=== PATIENT | male | born 1945 | race Caucasian/White ===

== ENCOUNTER → 2018-12-22 12:23 | Outpatient (CLI) | payer OTHER, SELFPAY ==
--- NOTE | 2018-12-22 12:27 | DI.MRI.S_ITS ---
PROCEDURE: MR LUMBAR SPINE WO CON INDICATIONS: Low back pain TECHNIQUE: Noncontrast sagittal T1 spin echo and T2 fast echo, sagittal STIR, axial T1 and T2 fast spin echo through the lumbar spine. In cases with scoliosis, additional coronal T2 fast spin echo may be performed. [facility] [place] [place], 03/03/2016, 14:38. FINDINGS: Image quality: Excellent. Alignment and Curvature: There is minimal anterolisthesis at L4-L5. Bone Marrow: Degenerative endplate signal changes are present in L4, L5 and S1. No acute vertebral body compression fractures. Spinal Cord: Conus medullaris terminates at the L1-L2 level. Visualized cord demonstrates normal signal and size. Paraspinous Soft Tissues: No paravertebral masses. L1-L2: Normal appearance. L2-L3: Preserved disc height. Mild disc desiccation. There is posterior disc bulge. The central canal is patent. No foraminal stenosis. No definitive nerve root impingement. L3-L4: Preserved disc height. Mild disc desiccation. There is mild posterior disc bulge. The central canal is patent. Mild left foraminal stenosis. No right foraminal stenosis. No definitive nerve root impingement. L4-L5: Moderate loss of disc height and disc desiccation. There is diffuse posterior disc bulge and right posterior paramedian disc extrusion. Moderate bilateral facet arthropathy. Mild hypertrophy of ligamentum flavum. The central canal is moderately narrowed. Mild right foraminal stenosis. Patent left neural foramen. There is possible right L5 nerve root impingement. L5-S1: Moderate to severe loss of disc height and disc desiccation. There is diffuse posterior disc bulge and disc osteophyte complex. Mild bilateral facet arthropathy. The central canal is patent. Mild foraminal stenosis. No definitive nerve root impingement. IMPRESSION: 1. Multilevel degenerative disc disease and facet arthropathy as described, most pronounced at L4-L5. 2. Moderate central canal stenosis at L4-L5. 3. Mild foraminal stenosis at L3-L4 on the left, L4-L5 on the right, and L5-S1 bilaterally. Dictated by: Tony Marie M.D. on 12/22/2018 at 13:35 Approved by: Tony Marie M.D. on 12/22/2018 at 15:21
--- NOTE | 2018-12-22 12:27 | DI.RAD.S_ITS ---
PROCEDURE: XR LUMBAR SPINE MIN 4V INDICATIONS: Low back TECHNIQUE: 5 views of the lumbar spine were acquired. COMPARISON: [facility] [place], CR, SPINE LUMB MIN 4VW, 03/03/2016, 14:38. FINDINGS: Bones: 5 nonrib-bearing vertebrae are present. There is normal bony alignment. No acute vertebral body compression fractures. Multilevel lumbar spondylosis with associated facet arthropathy most notable in the mid and lower lumbar spine, and most pronounced at L5-S1. No suspicious bony lesions. Minimal degenerative changes of the bilateral femoroacetabular joints. Soft tissues: Overlying bowel gas pattern is normal. No suspicious soft tissue calcifications. There are atherosclerotic calcifications of the abdominal aorta. Surgical clips in the left upper abdomen and pelvis are again noted Oblique images: No pars defects. IMPRESSION: Lumbar spine without acute osseous abnormalities. Multilevel lumbar spondylosis most severe at L5-S1. Dictated by: Grant Cruz M.D. on 12/22/2018 at 16:45 Approved by: Grant Cruz M.D. on 12/22/2018 at 16:49
== END ==
PROVIDERS: PCP Family Medicine; Visit Provider Physical Medicine & Rehabilitation
DX: M54.5 Low back pain (principal); M51.16 Intervertebral disc disorders with radiculopathy, lumbar region; M51.17 Intervertebral disc disorders with radiculopathy, lumbosacral region; M48.061 Spinal stenosis, lumbar region without neurogenic claudication; M48.07 Spinal stenosis, lumbosacral region; M47.26 Other spondylosis with radiculopathy, lumbar region; M47.27 Other spondylosis with radiculopathy, lumbosacral region
CPT/HCPCS: 72110; 72148

== ENCOUNTER 2019-01-02 10:31 | Outpatient (CLI) | payer OTHER, SELFPAY ==
[2019-01-02] VITALS (10 sets, daily range): BP systolic 119–152; BP diastolic 52–86; PULSE 63–83; RESP 16–20; TEMP 36.5; O2SAT 96–98
--- NOTE | 2019-01-02 | DI.RAD.S_ITS ---
PROCEDURE: PAIN L/SI FACET INJ/BLK 1STL INDICATIONS: SPONDYLOSIS FINDINGS: Fluoroscopic spot filming was performed to verify placement of spinal needles at the right L4-L5 level(s), as labeled on the films. Appropriate location(s) of the needle tip(s) was confirmed by injection of iodinated contrast. IMPRESSION: Fluoroscopy for pain management. Dictated by: Tony Marie M.D. on 01/02/2019 at 17:35 Approved by: Tony Marie M.D. on 01/02/2019 at 17:35
--- NOTE | 2019-01-02 10:34 | DI.RAD.S_ITS ---
PROCEDURE: PAIN L/S TRANSFORAMINAL INJECT INDICATIONS: SPONDYLOSIS FINDINGS: Fluoroscopic spot filming was performed to verify placement of spinal needles at the L4-L5 level(s), as labeled on the films. Appropriate location(s) of the needle tip(s) was confirmed by injection of iodinated contrast. IMPRESSION: Fluoroscopy for pain management. Dictated by: Tony Marie M.D. on 01/02/2019 at 17:35 Approved by: Tony Marie M.D. on 01/02/2019 at 17:35
[2019-01-02] MEDS: fentaNYL 100 MCG/2 ML INJ 50 MCG IV (12:08)
[2019-01-02] MEDS: MIDAZOLAM 5 MG/5 ML VIAL IV (12:08)
[2019-01-02] MEDS: BETAMETHASONE 30 MG/5 ML MDV 12 MG INJ (12:16)
[2019-01-02] MEDS: IOPAMIDOL 15 ML VIAL 3 ML INJ (12:16)
[2019-01-02] MEDS: BUPIVACAINE 0.5% (PF) VIAL 2 ML INJ (12:24)
--- NOTE | 2019-01-02 12:27 | PC.NURSE ---
Pt tolerated procedure well. Able to get off the table with standby assist. Transferred pt via wheelchair to pre procedure room for continued monitoring with Justyna COLLINS.
--- NOTE | 2019-01-02 12:36 | PC.NURSE ---
Pt returns to treatment area alert and awake. Is able to transfer himself to chair without assist.
--- NOTE | 2019-01-02 12:38 | P.PCN_ITS ---
Procedures Date/Time Date of procedure: 01/02/19 Time of procedure: 12:35 General Procedure description: PREOP DIAGNOSIS 1. FACET ARTHROPATHY, 2. AXIAL LBP, 3. MULTILEVEL DDD, POST OP DIAGNOSIS 1. FACET ARTHROPATHY, 2. AXIAL LBP, 3. MULTILEVEL DDD, PROCEDURES 1. FLUORSCOPICALLY GUIDED CONTRAST CONTROLLED FACET JOINT INJECTION and CYST RUPTURE RIGHT L4/5 SURGEON: Don Arteaga, DO INDICATIONS Calderon is referred by Dr. Mcgrath for treatment of Axial LBP FINDINGS Multilevel Facet Arthropathy with Clinically significant axial LBP DESCRIPTION OF PROCEDURE Fluoroscopically guided, contrast-controlled right L4/5 facet joint injections. Following review of allergy and review of potential side effects and complications, including, but not necessarily limited to, infection, allergic reaction, local tissue breakdown, stroke, temporary or permanent nerve injury, paralysis, and possible , the patient indicated that the patient understood and agreed to proceed. An informed consent document was signed by the patient, witnessed by a nurse, and placed in the patient's chart. Additionally, other treatment options including medications, modalities, and physical therapy were reviewed with the patient. After review of previous anaesthesic history and IV conscious sedation the patient was deemed safe to proceed with todays procedure with IV conscious sedation as ASA class II designation. Safety time-out was performed to confirm patient ID, procedure to be performed and site of procedure. IV sedation was accomplished with a combination of 4mg of Versed and 50mcg of Fentanyl administered by the RN after DO order, titrated to patient comfort during the course of the procedure while the patient remained responsive to all verbal commands. In the prone position, following sterile prep and drape of the lumbar region, the posterior aspect of the right L4/5 facet joints were identified fluoroscopically. The skin was anesthetized via a 25-gauge 1.5-inch needle with 1% lidocaine solution into the corresponding facet joints. At this point, a 22- gauge 3.5-inch spinal needle was atraumatically introduced and advanced under fluoroscopic guidance into the corresponding facet joint. Following negative aspiration and drainage of the facet cyst and rupture, injections of approximately 0.2-cc of Isovue 200 confirmed interarticular placement without vascular uptake. Radiological data, including multiple fluoroscopic views of the lumbosacral spine, reveal a spinal needle at the right L4/5 facet joint. Subsequent views show flow of contrast material both superiorly and inferiorly within the joint space without vascular or intrathecal uptake. At this point, a total of 0.5 cc including a mixture of 0.25 cc Marcaine and 0.25 cc betamethasone was injected without complication into each of the corresp onding facet joints. The patient tolerated the procedure well without signs or symptoms of complications prior to transfer to the recovery area for further monitoring. The patient was then transferred to the recovery area where they were observed for an appropriate period of time after the injection. The patient reported a VAS score of 7 prior to the procedure and a post-procedure VAS of 0. Total Fluoroscopy Time: 12.7 seconds Total Conscious Sedation Time: 24min POST OP INSTRUCTIONS The patient was provided a Pain Log to continue to record their response to the target-specific procedure prior to follow-up visit with their referring physician. Additionally, specific post-injection care instructions and a contact number to our office were provided if concerns arise regarding possible complications associated with the procedure are suspected Complications: none
--- NOTE | 2019-01-02 12:39 | P.PCN_ITS ---
Procedures Date/Time Date of procedure: 01/02/19 Time of procedure: 12:38 General Procedure description: PREOP DIAGNOSIS 1. FORMAINAL STENOSIS WITH LE SYMPTOMS POST OP DIAGNOSIS 1. FORMAINAL STENOSIS WITH LE SYMPTOMS PROCEDURES 1. FLUOROSCOPICALLY GUIDED CONTRAST CONTROLLED TRANSFORAMINAL EPIDURAL STEROID INJECTION - RIGHT L4/5 TFESI PHYSICIAN: Don Arteaga DO INDICATIONS: Calderon is referred by for treatment of Foraminal Stenosis with Right LE Symptoms FINDINGS Foraminal Nerve Root Compression secondary to disc disease and facet hypertrophy DESCRIPTION OF PROCEDURE: Following review of allergy and review of potential side effects and complications, including, but not necessarily limited to, infection, allergic reaction, local tissue breakdown, stroke, temporary or permanent nerve injury, paralysis, and possible , the patient indicated that the patient understood and agreed to proceed. An informed consent document was signed by the patient, witnessed by a nurse, and placed in the patient's chart. Additionally, other treatment options including medications, modalities, and physical therapy were reviewed with the patient. After review of previous anaesthesic history and IV conscious sedation the patient was deemed safe to proceed with todays procedure with IV conscious sedation as ASA class II designation. Safety time-out was performed to confirm patient ID, procedure to be performed and site of procedure. IV sedation was accomplished with a combination of 3mg of Versed was administered by the RN after DO order, titrated to patient comfort during the course of the procedure while the patient remained responsive to all verbal commands In the prone position following sterile prep and drape of the lumbar region, the Right L4/5 posterior neuroforamen was identified fluoroscopically. The skin was anesthetized via a 25-gauge 1.5-inch needle with 1% lidocaine solution. At this point, a 25-gauge 3.5-inch spinal needle was atraumatically introduced and advanced under fluoroscopic guidance through the posterior Right L4/5 neuroforamen to approximately the anterior aspect of the canal. Depth was confirmed on lateral view. Following negative aspiration, injection of approximately 1.5 cc of Isovue 200 under live fluoroscopy in the AP view confirmed excellent flow along the nerve root, into the epidural space without vascular or intrathecal uptake observed Radiological data, including multiple fluoroscopic views of the lumbosacral spine, reveal a spinal needle at the right L4/5 posterior neuroforamen. Subsequent views show flow of contrast material flowing superiorly and inferiorly along the nerve root confirming epidural flow. Subsequently, a test dose of 1.5 cc of 1% lidocaine solution was administered and patient was observed for two minutes for signs or symptoms of complications, including abdominal pain, shortness of breath, bilateral upper or lower extremity weakness, nausea and vomiting, prior to steroid injection. At this point, a total of 2cc or 20mg of dexamethasone was injected without incident. The procedure tolerated the procedure well without signs or symptoms of complications prior to transfer to the recovery area continued monitoring without incident.The patient was then transferred to the recovery area where they were observed for an appropriate time after the injection. The patient reported a VAS score of 7 prior to the procedure and a post- procedure VAS of 0. Total Fluoroscopy Time: 20.9 seconds Total Conscious Sedation Time: 24min POST OP INSTRUCTIONS The patient was provided a Pain Log to continue to record their response to the target-specific procedure prior to follow-up visit with their referring physician. Additionally, specific post-injection care instructions and a contact number to our office were provided if concerns arise regarding possible complications associated with the procedure are suspected. Don Arteaga DO Complications: none
== END 2019-01-02 12:55 ==
PROVIDERS: PCP Family Medicine; Visit Provider Physical Medicine & Rehabilitation
DX: M47.816 Spondylosis without myelopathy or radiculopathy, lumbar region (principal); M47.817 Spondylosis without myelopathy or radiculopathy, lumbosacral region; M48.061 Spinal stenosis, lumbar region without neurogenic claudication; M54.5 Low back pain; M51.36 Other intervertebral disc degeneration, lumbar region; M71.38 Other bursal cyst, other site
CPT/HCPCS: 64483; 64493; 99152; J0702; J2250; J3010

== ENCOUNTER → 2019-05-11 11:36 | Outpatient (CLI) | payer OTHER, SELFPAY ==
--- NOTE | 2019-05-11 11:38 | DI.RAD.S_ITS ---
PROCEDURE: XR HAND LT MIN 3V INDICATIONS: Left hand pain TECHNIQUE: 3 views of the hand(s) acquired. COMPARISON: None. FINDINGS: Bones: No fractures or dislocations. Carpal bones are normally aligned. No suspicious bony lesions. Diffuse interphalangeal degenerative spurring sclerosis. Ovoid ossified at the third metacarpal head. First CMC and triscaphe joint degeneration. Possible cysts or erosions present in the lunate and distal ulna Soft tissues: No suspicious soft tissue calcifications. IMPRESSION: Diffuse left hand joint degeneration, most pronounced at the first CMC joint. Hooklike osteophyte seen at the third metacarpal raises possibility of deposition arthropathy. Dictated by: Kurt Ybarra M.D. on 05/11/2019 at 15:32 Approved by: Kurt Ybarra M.D. on 05/11/2019 at 15:40
== END ==
PROVIDERS: Family Provider Family Medicine; PCP Family Medicine; Visit Provider Physical Medicine & Rehabilitation
DX: M18.11 Unilateral primary osteoarthritis of first carpometacarpal joint, right hand (principal); M18.12 Unilateral primary osteoarthritis of first carpometacarpal joint, left hand; M75.42 Impingement syndrome of left shoulder; M79.642 Pain in left hand
CPT/HCPCS: 73130

== ENCOUNTER → 2021-08-19 12:27 | Outpatient (CLI) | payer OTHER, SELFPAY ==
--- NOTE | 2021-08-19 12:29 | DI.MRI.S_ITS ---
PROCEDURE: MR LUMBAR SPINE WO CON INDICATIONS: Recurrent chronic progressive axial low back pain L>R TECHNIQUE: Noncontrast sagittal T1 spin echo and T2 fast echo, sagittal STIR, axial T1 and T2 fast spin echo through the lumbar spine. In cases with scoliosis, additional coronal T2 fast spin echo may be performed. COMPARISON: [facility], MR, MR LUMBAR SPINE WO CON, 12/22/2018, 12:35. FINDINGS: Image quality: Excellent. Alignment and Curvature: There is normal bony alignment. Bone Marrow: Marrow is of normal overall signal. No acute vertebral body compression fractures. Spinal Cord: Conus medullaris terminates at the L1 level. Visualized cord demonstrates normal signal and size. Paraspinous Soft Tissues: No paravertebral masses. T12-L1: No significant disc bulge. The foramina and central canal are patent. L1-L2: No significant disc bulge with mild disc desiccation. The foramina and central canal are patent. L2-L3: No significant disc bulge with mild disc desiccation. The foramina and central canal are patent. L3-L4: Diffuse disc bulge with mild disc desiccation and right facet hypertrophy causes severe right and moderate left foraminal stenosis. The central canal is patent. L4-L5: Diffuse disc bulge with mild disc desiccation and facet arthrosis cause mild bilateral foraminal stenosis. Mild right paramedian disc protrusion is unchanged. The central canal has mild stenosis. L5-S1: Disc space narrowing and diffuse disc bulge with Modic 3 endplate degenerative changes cause mild right and moderate left foraminal stenosis. Mild left foraminal disc protrusion. IMPRESSION: 1. Multilevel degenerative disc disease and facet arthropathy causing foraminal and central canal stenosis as above. 2. Mild central canal stenosis at L4-5. 3. Overall there is no significant change compared to 12/22/2018. Dictated by: Ascencion Hassan M.D. on 08/19/2021 at 17:44 Approved by: Ascencion Hassan M.D. on 08/19/2021 at 17:54
== END ==
PROVIDERS: Family Provider Family Medicine; PCP Internal Medicine; Referring Provider Physical Medicine & Rehabilitation; Visit Provider Physical Medicine & Rehabilitation
DX: M51.16 Intervertebral disc disorders with radiculopathy, lumbar region (principal); M51.17 Intervertebral disc disorders with radiculopathy, lumbosacral region; M47.26 Other spondylosis with radiculopathy, lumbar region; M47.27 Other spondylosis with radiculopathy, lumbosacral region; M48.061 Spinal stenosis, lumbar region without neurogenic claudication; M48.07 Spinal stenosis, lumbosacral region; M71.38 Other bursal cyst, other site
CPT/HCPCS: 72148

== ENCOUNTER → 2021-09-01 11:25 | Outpatient (CLI) | payer OTHER, SELFPAY ==
[2021-09-01 12:08] LABS: COVID19 -Nasal RAPID Negative (Negative)
== END ==
PROVIDERS: Family Provider Family Medicine; PCP Internal Medicine; Visit Provider Physical Medicine & Rehabilitation
DX: Z20.822 Contact with and (suspected) exposure to COVID-19 (principal)
CPT/HCPCS: 87635; C9803

== ENCOUNTER 2021-09-03 14:56 | Outpatient (CLI) | payer OTHER, SELFPAY ==
[2021-09-03] VITALS (9 sets, daily range): BP systolic 171–193; BP diastolic 74–84; PULSE 60–68; RESP 14–20; TEMP 37.1; O2SAT 95–100
--- NOTE | 2021-09-03 14:57 | DI.RAD.S_ITS ---
PROCEDURE: PAIN L/S FACET INJ/BLK 1ST KELLE COMPARISON: None. INDICATIONS: Spondylosis FINDINGS: Intraoperative fluoroscopic images shows injection needles projecting at right side of L4-5 and L5-S1 levels. IMPRESSION: Fluoro guidance was provided intraoperatively for bilateral L4-5 and L5-S1 facet joint injections performed by the ordering physician. Dictated by: Orlando Marquez M.D. on 09/03/2021 at 16:34 Approved by: Orlando Marquez M.D. on 09/03/2021 at 16:39
[2021-09-03] MEDS: fentaNYL 100 MCG/2 ML INJ (15:56)
[2021-09-03] MEDS: MIDAZOLAM 2 MG/2 ML VIAL 5 MG IV (15:57)
[2021-09-03] MEDS: BETAMETHASONE 30 MG/5 ML MDV 12 MG INJ (15:58)
[2021-09-03] MEDS: LIDOCAINE 1% 20 ML (15:58)
[2021-09-03] MEDS: BUPIVACAINE 0.5% (PF) VIAL 5 ML INJ (15:58)
[2021-09-03] MEDS: IOPAMIDOL 15 ML VIAL 3 ML INJ (15:59)
--- NOTE | 2021-09-03 16:16 | P.PCN_ITS ---
Date/Time/Diagnoses Date of procedure: 09/03/21 Time of procedure: 16:16 Pre-procedure diagnosis: 1. FACET ARTHROPATHY 2. AXIAL LBP 3. MULTILEVEL DDD Post-procedure diagnosis: same Procedure Notes Procedure: 1. FLUOROSCOPICALLY GUIDED CONTRAST CONTROLLED FACET JOINT INJECTIONS BILATERAL L4/5, L5/S1 Indications: Calderon is referred by Dr. Murguia for treatment of Axial LBP Physician: Don Arteaga Total Fluoroscopy time (seconds): 18 Total sedation minutes: 18 Complications: none Procedure in detail & Post-procedure care: FINDINGS Multilevel Facet Arthropathy with Clinically significant axial LBP DESCRIPTION OF PROCEDURE Fluoroscopically guided, contrast-controlled bilateral L4/5, L5/S1 facet joint injections. Following review of allergy and review of potential side effects and complications, including, but not necessarily limited to, infection, allergic reaction, local tissue breakdown, stroke, temporary or permanent nerve injury, paralysis, and possible , the patient indicated that the patient understood and agreed to proceed. An informed consent document was signed by the patient, witnessed by a nurse, and placed in the patient's chart. Additionally, other treatment options including medications, modalities, and physical therapy were reviewed with the patient. After review of previous anaesthesic history and IV conscious sedation the patient was deemed safe to proceed with today?s procedure with IV conscious sedation as ASA class II designation. Safety time-out was performed to confirm patient ID, procedure to be performed and site of procedure. IV sedation was accomplished with a combination of 2mg of Versed and 50mcg of Fentanyl was administered by the RN after DO order, titrated to patient comfort during the course of the procedure while the patient remained responsive to all verbal commands In the prone position, following sterile prep and drape of the lumbar region, the posterior aspect of the L4/5, L5/S1 facet joints were identified fluoroscopically. The skin was anesthetized via a 25-gauge 1.5inch needle with 1% lidocaine solution into the corresponding facet joints. At this point, a 22- gauge 3.5-inch spinal needle was atraumatically introduced and advanced under fluoroscopic guidance into the corresponding facet joints. Following negative aspiration, injections of approximately 0.2cc of Isovue 200 confirmed intera rticular placement without vascular uptake. The identical procedure was then performed at the L4/5, L5/S1 facet joints on the left. Radiological data, including multiple fluoroscopic views of the lumbosacral spine, reveal a spinal needle at the L4/5, L5/S1 facet joints bilaterally. Subsequent views show flow of contrast material both superiorly and inferiorly within the joint space without vascular or intrathecal uptake. At this point, a total of 0.5cc including a mixture of 0.25cc Marcaine and 0.25cc betamethasone was injected without complication into each of the corresponding facet joints. The patient tolerated the procedure well without signs or symptoms of complications prior to transfer to the recovery area continued monitoring without incident. The patient was then transferred to the recovery area where they were observed for an appropriate period of time after the injection. The patient reported a VAS score of 7 prior to the procedure and a post- procedure VAS of 0. POST OP INSTRUCTIONS The patient was provided a Pain Log to continue to record their response to the target-specific procedure prior to follow-up visit with their referring physician. Additionally, specific post-injection care instructions and a contact number to our office were provided if concerns arise regarding possible complications associated with the procedure are suspected.
== END 2021-09-03 16:30 | disposition home or self-care (01) ==
LOC: RAD 14:57
PROVIDERS: Family Provider Family Medicine; PCP Internal Medicine; Referring Provider Physical Medicine & Rehabilitation; Visit Provider Physical Medicine & Rehabilitation
DX: M47.816 Spondylosis without myelopathy or radiculopathy, lumbar region (principal); M47.817 Spondylosis without myelopathy or radiculopathy, lumbosacral region; M51.36 Other intervertebral disc degeneration, lumbar region; M51.37 Other intervertebral disc degeneration, lumbosacral region
CPT/HCPCS: 64493; 64494; 99152; J0702; J2250; J3010

== ENCOUNTER 2021-12-08 10:07 | Outpatient (CLI) | payer OTHER, SELFPAY ==
[2021-12-08] VITALS (9 sets, daily range): BP systolic 163–203; BP diastolic 70–84; PULSE 53–65; RESP 14–20; TEMP 36.3; O2SAT 95–100
--- NOTE | 2021-12-08 10:08 | DI.RAD.S_ITS ---
PROCEDURE: PAIN L/S FACET INJ/BLK 1ST KELLE COMPARISON: [facility], , PAIN L/S FACET INJ/BLK 1ST KELLE, 09/03/2021, 15:56. INDICATIONS: SPONDYLOSIS FINDINGS: Fluoroscopic spot filming was performed to verify placement of spinal needles on both sides at the L3, L4, and L5 levels, as labeled on the films. Appropriate location of the needle tips was confirmed by injection of iodinated contrast. IMPRESSION: Intraprocedural examination demonstrating appropriate positions of the needles. Dictated by: Koffi Romero M.D. on 12/08/2021 at 12:29 Approved by: Koffi Romero M.D. on 12/08/2021 at 12:29
[2021-12-08 11:57] LABS: COVID19 -Nasal RAPID Negative (Negative)
[2021-12-08] MEDS: MIDAZOLAM 2 MG/2 ML VIAL (12:50)
[2021-12-08] MEDS: BUPIVACAINE 0.5% (PF) VIAL 5 ML INJ (12:55)
[2021-12-08] MEDS: LIDOCAINE 1% 20 ML (12:56)
[2021-12-08] MEDS: IOPAMIDOL 15 ML VIAL 3 ML INJ (12:56)
--- NOTE | 2021-12-08 13:05 | P.PCN_ITS ---
Date/Time/Diagnoses Date of procedure: 12/08/21 Time of procedure: 13:05 Pre-procedure diagnosis: FACET ARTHROPATHY Post-procedure diagnosis: same Procedure Notes Procedure: 1. BILATERAL L3, L4 AND L5 DIAGNOSTIC MB BLOCKS Indications: Calderon is referred by Dr. Murguia for treatment of Bilateral Axial LBP. Physician: Don Arteaga Total Fluoroscopy time (seconds): 13 Total sedation minutes: 12 Complications: none Procedure in detail & Post-procedure care: DESCRIPTION OF PROCEDURE Fluoroscopically guided, contrast-controlled bilateral L3, L4 AND L5 medial branch blocks with 0.5cc of 0.5% Marcaine. Following review of allergy and review of potential side effects and complications, including, but not necessarily limited to, infection, allergic reaction, local tissue breakdown, nerve injury, paralysis, stroke and possible , the patient indicated that the patient understood and agreed to proceed. An informed consent document was signed by the patient, witnessed by a nurse, and placed in the patient's chart. After review of previous anaesthesic history and IV conscious sedation the patient was deemed safe to proceed with today's procedure with IV conscious sedation as ASA class II designation. Safety time-out was performed to confirm patient ID, procedure to be performed and site of procedure. IV sedation was accomplished with a combination of 2mg of Versed was administered by the RN a fter DO order, titrated to patient comfort during the course of the procedure while the patient remained responsive to all verbal commands In the prone position, following sterile prep and drape of the lumbar region, the right L3, L4 and L5 anatomical location of the medial branch of the dorsal ramus was identified fluoroscopically. Subsequently an anesthetic skin wheal using 1% lidocaine solution was initiated at each of the anatomical spots. Subsequently then a 22-gauge 3.5-inch spinal needle was atraumatically introduced and advanced under fluoroscopic guidance at each of the corresponding sites at the right L3, L4 and L5 MB. After negative aspiration, 0.2cc of Isovue 200 was injected, confirming placement without vascular or intrathecal uptake. Subsequently then 0.5cc of 0.5% Marcaine solution was injected at each of the corresponding sites at the right L3, L4 and L5 medial branch locations. The identical procedure was replicated on the left. The patient tolerated the procedure well without signs or symptoms of complications. The patient tolerated the procedure well without signs or symptoms of complications prior to transfer to the recovery area continued monitoring w ithout incident. Post-procedure, the patient was monitored initiating provocative activities to measure the amount of relief from block of the facetogenic pain. The patient reported a VAS of 7 prior to the procedure and a post-procedure VAS of 1. It has been a pleasure to assist in the diagnostic and therapeutic care of your patient. POST OP INSTRUCTIONS The patient was provided with a Pain Log to complete over the next several hours and subsequent days prior to the patient's follow up with the ordering physician. If the patient has admitting interviewer relief to the solution applied, then they may be a candidate for medial branch rhizotomy. The patient is aware, was provided, once again, with a Pain Log and will follow up with the referring physician for review and clinical correlation
== END 2021-12-08 13:25 | disposition home or self-care (01) ==
PROVIDERS: Family Provider Family Medicine; PCP Internal Medicine; Referring Provider Physical Medicine & Rehabilitation; Visit Provider Physical Medicine & Rehabilitation
DX: M47.816 Spondylosis without myelopathy or radiculopathy, lumbar region (principal); Z20.822 Contact with and (suspected) exposure to COVID-19
CPT/HCPCS: 64493; 82962; 87635; 99152; J2250

== ENCOUNTER → 2022-02-16 10:27 | Outpatient (CLI) | payer OTHER, SELFPAY ==
[2022-02-16 12:39] LABS: COVID19 -Nasal RAPID Negative (Negative)
== END ==
PROVIDERS: Family Provider Family Medicine; PCP Internal Medicine; Visit Provider Physical Medicine & Rehabilitation
DX: Z20.822 Contact with and (suspected) exposure to COVID-19 (principal)
CPT/HCPCS: 87635; C9803

== ENCOUNTER 2022-02-18 10:37 | Outpatient (CLI) | payer OTHER, SELFPAY ==
[2022-02-18] VITALS (11 sets, daily range): BP systolic 140–189; BP diastolic 63–112; PULSE 50–59; RESP 15–18; TEMP 36.5; O2SAT 95–98
--- NOTE | 2022-02-18 10:37 | DI.RAD.S_ITS ---
PROCEDURE: PAIN L/S MED/LAT N RFA BILAT INDICATIONS: SPONDYLOSIS COMPARISON: None. FINDINGS: Fluoroscopic spot filming was performed to verify placement of spinal needles at the bilateral L3, L4, and L5 level(s), as labeled on the films. Appropriate location(s) of the needle tip(s) was confirmed by injection of iodinated contrast. IMPRESSION: Fluoroscopic support for bilateral lumbar spine medial branch rhizotomy. Please see separate procedure note for further details. Dictated by: Grant Cruz M.D. on 02/18/2022 at 12:25 Approved by: Grant Cruz M.D. on 02/18/2022 at 12:27
[2022-02-18] MEDS: MIDAZOLAM 2 MG/2 ML VIAL 4 MG IV (11:50)
[2022-02-18] MEDS: LIDOCAINE 1% 20 ML INJ (11:53)
[2022-02-18] MEDS: BUPIVACAINE 0.5% (PF) VIAL 10 ML INJ (11:55)
--- NOTE | 2022-02-23 14:09 | P.PCN_ITS ---
Date/Time/Diagnoses Date of procedure: 02/18/22 Time of procedure: 11:30 Pre-procedure diagnosis: 1. RECALCITRANT FACET ARTHROPATHY Post-procedure diagnosis: same Procedure Notes Procedure: 1. BILATERAL L3, L4 AND L5 MEDIAL BRANCH RADIOFREQUENCY NEUROTOMY Indications: Calderon is referred by Dr. Murguia for treatment of facet arthropathy. Physician: Don Arteaga Total Fluoroscopy time (seconds): 27 Total sedation minutes: 42 Complications: none Procedure in detail & Post-procedure care: DESCRIPTION OF PROCEDURE Bilateral L3, L4 and L5 medial branch radiofrequency neurotomy The patient is well known to this clinic having undergone previous facet injections with good but temporary relief. The patient has experienced appropriate, concordant relief with previous facet and median branch blocks but the patient's pain has been recalcitrant to further conservative measures. Therefore, based upon the patient's relief and persistent symptoms, the patient is considered an appropriate candidate for facet rhizotomy. All of the patient's questions regarding the risks versus benefits of the procedure, including, but not limited to, bleeding, infection, temporary as well as lasting nerve injury, paralysis, stroke, and , as well treatment alternatives were answered to satisfaction. After obtaining informed consent, denial of pertinent drug allergies, as well as being made aware of the potential risks of bleeding, infection, spinal cord trauma, paralysis, temporary and permanent nerve damage, seizure, stroke, and possible , the patient was brought to the fluoroscopy suite and positioned prone on the fluoroscopy table. The lumbar region was prepped with Betadine and covered with a fenestrated drape in the usual sterile fashion. Appropriate monitors applied including pulse oximeter, pulse, and blood pressure for regular monitoring throughout the procedure. After review of previous anaesthesic history and IV conscious sedation the patient was deemed safe to proceed with today's procedure with IV conscious sedation as ASA class II designation. Safety time-out was performed to confirm patient ID, procedure to be performed and site of procedure. IV sedation was accomplished with a combination of 4mg of Versed administered by the RN after DO order, titrated to patient comfort during the course of the procedure while the patient remained responsive to all verbal commands. After local infiltration using 1% lidocaine, under fluoroscopic guidance, a 10- cm RF insulated needle with a 10-mm active tip was positioned parallel to the junction of the right the superior articulating process where the L5 medial branch resides. Needle placement was confirmed with motor stimulation of .5v on the right which produced local stimulation without radicular component. The stimulation was then increased to 2v with, once again, only local multifidus stimulation without radicular component. The needle was then removed and the identical procedure was performed along the length of the right L4 medial branch with motor stimulation at .7v on the right. The identical procedure was once again performed along the length of the right L3 and medial branch with motor stimulation of .5v on the right. The medial branches were then anesthetised with 0.5% marcaine. This was then followed by two discreet lesions performed at 80 degrees Celsius for 90 seconds each. The identical procedures were repeated on the left. The patient tolerated the procedure well without signs or symptoms of complications prior to transfer to the recovery area continued monitoring without incident. The patient was then transferred to the recovery area where they were observed for an appropriate period of time after the injection. The patient reported a VAS score of 8 prior to the procedure and a post-procedure VAS of 1. POST OP INSTRUCTIONS The patient was provided a Pain Log to continue to record the patient's response to the target-specific procedure prior to the patient's follow-up visit with the referring physician. Additionally, specific post-injection care instructions and a contact number to our office were provided if concerns arise regarding possib le complications associated with the procedure are suspected.
== END 2022-02-18 12:23 | disposition home or self-care (01) ==
PROVIDERS: Family Provider Family Medicine; PCP Internal Medicine; Referring Provider Physical Medicine & Rehabilitation; Visit Provider Physical Medicine & Rehabilitation
DX: M47.816 Spondylosis without myelopathy or radiculopathy, lumbar region (principal)
CPT/HCPCS: 64635; 64636; 99152; 99153; J2250

== ENCOUNTER → 2022-04-28 14:52 | Outpatient (CLI) | payer OTHER, SELFPAY ==
--- NOTE | 2022-04-28 14:54 | DI.RAD.S_ITS ---
PROCEDURE: XR LUMBAR SPINE MIN 4V INDICATIONS: BACK PAIN TECHNIQUE: 5 views of the lumbar spine were acquired, including bilateral oblique views. COMPARISON: [facility], MR, MR LUMBAR SPINE WO CON, 08/19/2021, 13:12. [facility], CR, XR LUMBAR SPINE MIN 4V, 12/22/2018, 12:52. FINDINGS: Bones: 5 nonrib-bearing vertebrae are present. Mild degenerative anterolisthesis of L4 on L5. Trace degenerative retrolisthesis of L3 on L4. No vertebral body compression fractures. No suspicious bony lesions. Lower lumbar facet arthropathy. Multilevel degenerative disc space loss. Soft tissues: Overlying bowel gas pattern is normal. No suspicious soft tissue calcifications. Oblique images: No pars defects. IMPRESSION: Degenerative change with multilevel facet arthropathy. No pars defects. No acute compression fractures. Dictated by: Raymond Johnson M.D. on 04/28/2022 at 15:26 Approved by: Raymond Johnson M.D. on 04/28/2022 at 15:46
== END ==
PROVIDERS: Family Provider Family Medicine; PCP Internal Medicine; Referring Provider Physical Medicine & Rehabilitation; Visit Provider Physical Medicine & Rehabilitation
DX: M47.26 Other spondylosis with radiculopathy, lumbar region (principal); M47.27 Other spondylosis with radiculopathy, lumbosacral region; M71.38 Other bursal cyst, other site; M43.16 Spondylolisthesis, lumbar region
CPT/HCPCS: 72110; 99214

== ENCOUNTER → 2022-05-11 10:08 | Outpatient (CLI) | payer OTHER, SELFPAY ==
--- NOTE | 2022-05-11 10:09 | DI.MRI.S_ITS ---
PROCEDURE: MR LUMBAR SPINE WO CON INDICATIONS: progressive LBP despite facet RFA TECHNIQUE: Noncontrast sagittal T1 spin echo and T2 fast echo, sagittal STIR, and T2 fast spin echo through the lumbar spine. In cases with scoliosis, additional coronal T2 fast spin echo may be performed. COMPARISON: [facility], MR, MR LUMBAR SPINE WO CON, 08/19/2021, 13:12. FINDINGS: Image quality: Excellent. Alignment and Curvature: 3 mm degenerative retrolisthesis of L3 on L4. 4 mm degenerative anterolisthesis of L4 on L5. Unchanged alignment. Bone Marrow: Marrow is of normal overall signal. No acute vertebral body compression fractures. Spinal Cord: Conus medullaris terminates at the top of L2 level. Visualized cord demonstrates normal signal and size. Paraspinous Soft Tissues: No paravertebral masses. T12-L1: No canal stenosis or foraminal stenosis. L1-L2: No canal stenosis or foraminal stenosis. L2-L3: Minimal disc bulge. Mild facet hypertrophy. No canal stenosis or foraminal stenosis. L3-L4: Retrolisthesis of L3 on L4. Disc bulge. Facet hypertrophy. Epidural lipomatosis. Mild canal stenosis. Moderate right foraminal narrowing with mild flattening deformity on the exiting right L3 nerve root. Mild left foraminal narrowing. L4-L5: Anterolisthesis of L4 on L5. Posterior disc bulge. Facet hypertrophy. Epidural lipomatosis. Mrmn-ok-vhyhjjgg canal stenosis. There is a small facet joint cyst anteriorly off the right facet which contributes to a degree of impingement on the right L5 nerve root in the right lateral recess. Mild bilateral foraminal narrowing. L5-S1: Disc bulge. Facet hypertrophy. No significant canal stenosis. Zidx-zt-xxysoxkw bilateral foraminal stenosis. IMPRESSION: 1. There is multilevel facet arthropathy. 2. Canal stenosis is mild at L3-L4 and fgli-tf-lviklwib at L4-L5. 3. At L4-L5, there is a small facet joint cyst anteriorly off the right facet which contributes to a degree of impingement on the right L5 nerve root in the right lateral recess. Question: Does this patient have right L5 radiculopathy? 4. Multilevel foraminal narrowing as described above. Dictated by: Raymond Johnson M.D. on 05/11/2022 at 11:13 Approved by: Raymond Johnson M.D. on 05/11/2022 at 11:22
== END ==
PROVIDERS: Family Provider Family Medicine; PCP Internal Medicine; Referring Provider Physical Medicine & Rehabilitation; Visit Provider Physical Medicine & Rehabilitation
DX: M47.26 Other spondylosis with radiculopathy, lumbar region (principal); M47.27 Other spondylosis with radiculopathy, lumbosacral region; M43.16 Spondylolisthesis, lumbar region; M48.061 Spinal stenosis, lumbar region without neurogenic claudication; M48.07 Spinal stenosis, lumbosacral region; M53.86 Other specified dorsopathies, lumbar region
CPT/HCPCS: 72148

== ENCOUNTER → 2022-07-09 09:28 | Outpatient (CLI) | payer OTHER, SELFPAY ==
--- NOTE | 2022-07-09 | DI.CT.S_ITS ---
PROCEDURE: CT LUMBAR SPINE WO CON INDICATIONS: Spinal stenosis, lumbar region with neurogenic claudication TECHNIQUE: Noncontrast 3 mm thick sections acquired from the T12 level to the sacrum. Sagittal and coronal reformats were constructed. For radiation dose reduction, the following was used: automated exposure control. COMPARISON: None. FINDINGS: Image quality: Excellent. Bones: There is normal bony alignment. No acute vertebral body compression fractures. No suspicious lytic or blastic bony lesions. No pars defects. T12-L1: No significant disc bulge. The foramina and central canal are patent. L1-L2: No significant disc bulge. The foramina and central canal are patent. L2-L3: No significant disc bulge. The foramina and central canal are patent. L3-L4: Disc space narrowing with 3 mm retrolisthesis. The endplates have Schmorl's nodes. Diffuse disc bulge with disc osteophytes present bilaterally. The foramina have mild stenosis bilaterally. The central canal is patent. L4-L5: Disc space narrowing with 4 mm anterolisthesis. Intradiscal gas is seen. There is facet hypertrophy bilaterally. The foramina have moderate stenosis bilaterally. The central canal has moderate stenosis. L5-S1: Disc space narrowing. Intradiscal gas is seen. There is facet hypertrophy bilaterally. Moderate bilateral foraminal stenosis. The central canal is patent. Soft tissues: No retroperitoneal masses or hematomas. Visualized aorta is normal in caliber. The aorta has atherosclerotic calcifications. Small hiatal hernia. IMPRESSION: 1. Multilevel lumbar spondylosis causing foraminal and central canal stenosis as detailed above. 2. No acute abnormality. Dictated by: Ascencion Hassan M.D. on 07/09/2022 at 12:10 Approved by: Ascencion Hassan M.D. on 07/09/2022 at 12:16
== END ==
PROVIDERS: Family Provider Family Medicine; PCP Internal Medicine; Referring Provider Orthopaedic Surgery Orthopaedic Surgery of the Spine; Visit Provider Orthopaedic Surgery Orthopaedic Surgery of the Spine
DX: M48.062 Spinal stenosis, lumbar region with neurogenic claudication (principal); M47.816 Spondylosis without myelopathy or radiculopathy, lumbar region
CPT/HCPCS: 72131

== ENCOUNTER → 2022-07-21 08:49 | Outpatient (CLI) | payer OTHER, SELFPAY ==
[2022-07-21 09:41] LABS: Add Manual Diff / Slide Review NO; Basophils Absolute Auto 0 /uL (0-100); Basophils Percent Auto 0.5 % (0-2); Eosinophils Absolute Auto 200 /uL (0-450); Eosinophils Percent Auto 3.1 % (2-4); Hematocrit 40.5 % (41-53); Hemoglobin 13.9 g/dL (13.5-17.5); Lymphocytes Absolute Auto 1200 /uL (1100-4500); Lymphocytes Percent Auto 15.7 % (25-40); Mean Corpuscular HGB Conc 34.3 % (30-36); Mean Corpuscular Hemoglobin 30.8 PG (26-34); Mean Corpuscular Volume 89.6 fL (80-100); Monocytes Absolute Auto 600 /uL (0-900); Monocytes Percent Auto 8.3 % (3-14); Neutrophils Absolute Auto 5400 /uL (1500-7000); Neutrophils Percent Auto 72.4 % (50-75); Platelet Count 319 X10^3/uL (150-400); Red Blood Cell Count 4.52 X10^6/uL (4.5-5.9); Red Cell Distribution Width 13.4 % (11.6-14.8); White Blood Cell Count 7.5 X10^3/uL (4.5-11.0)
[2022-07-21 09:53] LABS: BUN Creatinine Ratio 20.3 (6-22); Blood Urea Nitrogen 30 mg/dL (9-20); Carbon Dioxide 33 mmol/L (22-32); Chloride 98 mmol/L (98-107); Estimated Glomerular Filt Rate 49 mL/min (>60); Glucose 63 mg/dL (80-110); HEMOLYSIS < 15 (0-50); Potassium 4.4 mmol/L (3.4-5.1); Sodium 139 mmol/L (137-145)
[2022-07-21 09:56] LABS: Hemoglobin A1C% w Est Avg Glu 7.3 % (4.0-6.0)
== END ==
PROVIDERS: Family Provider Family Medicine; PCP Internal Medicine; Referring Provider Orthopaedic Surgery Orthopaedic Surgery of the Spine; Visit Provider Orthopaedic Surgery Orthopaedic Surgery of the Spine
DX: Z01.818 Encounter for other preprocedural examination (principal); R73.9 Hyperglycemia, unspecified; Z01.812 Encounter for preprocedural laboratory examination
CPT/HCPCS: 36415; 80048; 83036; 85025; 93005

== ENCOUNTER 2022-07-21 09:50 | Inpatient (IN) | payer OTHER, SELFPAY ==
[2022-07-20 14:31] VITALS: BMI 35.6
[2022-07-21] VITALS (15 sets, daily range): BP systolic 133–179; BP diastolic 60–82; PULSE 56–96; RESP 11–17; TEMP 36.1–36.6; O2SAT 87–99; BMI 32.1; BMI 34.2
--- NOTE | 2022-07-21 | DI.RAD.S_ITS ---
PROCEDURE: XR LUMBAR SPINE 2-3V INDICATIONS: L4-5 L5-S1 TLIF TECHNIQUE: 2 fluoroscopic views of the lumbar spine were acquired. COMPARISON: [facility], , XR LUMBAR SPINE MIN 4V, 04/28/2022, 14:56. FINDINGS: Fluoroscopic images demonstrate posterior fixation and discectomy from L4-S1. IMPRESSION: Lumbosacral fixation and discectomy. Dictated by: Sonam Corrigan M.D. on 07/21/2022 at 17:01 Approved by: Sonam Corrigan M.D. on 07/21/2022 at 17:02
[2022-07-21 10:41] LABS: COVID19 -Nasal RAPID Negative (Negative)
[2022-07-21] MEDS: DEXTROSE 5%-LACTATED RINGERS 200 ML 999 ML IV (10:42)
[2022-07-21] MEDS: LACTATED RINGERS 1,000 ML 84 ML IV ×3 (11:06→16:23)
--- NOTE | 2022-07-21 11:12 | PM.PREOP ---
Pre-operative Note COVID-19 COVID-19 status: Negative Result date/Date tested (Pos, Neg/Pending): 07/20/22 Criteria for continued procedure: Expected advancement of disease process, Possibility delay results in more complex future surgery or treatment, Increased loss of function, Continuing or worsening of significant or severe pain, Deterioration of the patient's condition or overall health and Delay expected to result in less-positive ultimate med/surg outcome Interval Note History & Physical reviewed/Exam performed by Physician: Yes Changes to H&P: No
[2022-07-21] MEDS: CEFAZOLIN 2 GM/100 ML PREMIX 100 ML IV ×2 (12:20→19:52)
--- NOTE | 2022-07-21 12:37 | SUR.OPER ---
Prone on spine table, head in foam head support, padded chest and pelvic supports, gel pad at knees, lower legs supported by pillows; nipples, genitalia and toes free of pressure, arms secured on foam padded arm boards at <90 degrees abduction. Tape over blanket at thigh secured to table. Pt positioned per direction and supervision of Dr Cisneros.
[2022-07-21] MEDS: BUPIVACAINE 0.25% (PF) 60 ML, EPINEPHrine 0.3 MG INJ (12:41)
[2022-07-21] MEDS: BUPIVACAINE LIPOSOME 266 MG/20 ML VIAL INJ (12:41)
--- NOTE | 2022-07-21 15:56 | P.OP_ITS ---
Operative Date/Time/Diagnoses Date of procedure: 07/21/22 Time of procedure: 12:30 Pre-op diagnosis: 1. L4-5, L5-S1 spinal stenosis with neurogenic claudication 2. L4-5, L5-S1 spondylolisthesis Post-op diagnosis: same Procedure & Clinicians Procedure: 1. L4-5, L5-S1 Postero-lateral and posterior interbody fusion 2. L4-5, L5-S1 interbody cage placement. 3. L4-5, L5-S1 decompressive laminectomy with bilateral facetecomies 4. L4-5, L5-S1 Posterior segmental instrumentation 5. Grapeview of bone marrow from iliac crest 6. Utilization of microsurgical technique and operating microscope Same procedure as scheduled: Yes Indications: Patient has been having chronic back pain and worsening lumbar radiculopathy. Patient failed multiple conservative management with worsening pain weakness and numbness in her lower extremity. Patient has been having difficulty performing activity of daily living. After discussing risks benefits of treatment options, patient elected proceed with surgery. Surgeon: Adam Cisneros Light Fixture Servicer: Sharron Kraus Click Yes if Unassisted: No Anesthesia Type: General Operative Notes Closure Type: primary Specimen(s): none sent Prosthetic devices, grafts, tissues, transplants, or devices: Globus CREO MIS screws, Rise cages Applied: catheter Estimated Blood Loss (mL): 200 Blood products transfused: none Procedure in detail: Patient was seen in the preoperative area. Risks and benefits of the surgery was discussed with the patient. Informed consent was obtained from the patient and placed in the chart. Surgical site was marked. Patient was taken to the operative room. General anesthesia was administered. Prophylactic antibiotic was given to the patient less than 30 min before the incision was made. Patient was placed into a prone position on the Abdulkadir table. Patient's back was then prepped and draped in the sterile fashion. Time-out was performed at this time. After patient was prepped and draped, patient's PSIS was palpated and marked bilaterally. Small 1 cm incision was made over the PSIS for placement of the reference probes. Two trocar was placed into the PSIS 1 on each side. The reference probe was attached to the trocar of the reference apparatus. At this time the C-arm imaging was used to confirm AP and lateral of L4-L5, L5- S1 vertebrae and merged the C-arm imaging using the [employer] robotic navigation system with the CT of the lumbar spine. After successful merging was completed and confirmed, skin marker was used to rivera out the skin incision using the [employer] robotic arm. Bilateral incision was made at this time. Pre templated trajectory was used and guided using the [employer] robotic navigation system for bilateral L4, L5, S1 pedicle screw placement. This was done by using the robotic arm to guide the high-speed bur to make a cortical entry point. Next a drill was placed also using the robotic arm and guided using the navigation system drilling partially through bilateral L4, L5 and S1 pedicles. Next L4, L5, S1 pedicle screws it was pre templated and measured was placed onto the power construction driver and inserted into the pedicles bilaterally. After all 6 screws were placed C-arm imaging was taken of both AP and lateral to confirm the placement. Excellent placement of the screws were confirmed and a matched precisely with the pre planned screw placement using the navigation system. MARs retractor was inserted using AIRTAMEivation guidence. Globus MARS retractors was placed inside the incision and docked onto the L4 and L5 lamina. Using microsurgical technique and operating microscope, a L4, L5 laminectomy and L4-5, L5-S1 facetectomy was performed using a Kerrison rongeur. Patient was found have severe lateral recess and neural foramen stenosis which was fully decompressed after the laminectomy facetectomy. More than 75% of the facets were removed during the process of decompression rendering L4-5, L5-S1 level grossly unstable and required a fusion procedure at the same time. The disc space at L4-5, L5-S1 was identified, and a total diskectomy was performed at L4- 5, L5-S1 level. The endplates were decorticated using a rasp and shaver. The total diskectomy and decortication was performed at L4-5, L5-S1 level in order to to accomplish a L4-5, L5-S1 fusion. The local bone from the laminectomy and facetectomy was saved for local bone grafting. After the total diskectomy and decortication was completed, Trifecta bone graft material was combined with local bone that was harvested earlier. At this time, a separate skin is incision was made over the iliac crest. A Jamshidi needle was inserted into the iliac crest through a separate skin incision. 5 cc of bone marrow aspiration was obtained through the separate skin incision using a Jamshidi needle from the iliac crest. The bone marrow asp iration was combined with local bone and the Trifecta bone grafting material. The bone grafting material was placed into the L4-5, L5-S1 interbody space along with a expandable cage. The cage was expanded to its maximum height using the torque limiting screwdriver. The disc preparation as well as the cage insertion were also performed under navigation guidance. After the cage was placed, AP and lateral C-arm imaging was taken to confirm placement of the cage and excellent position was confirmed. Globus MARS retractor was inserted and docked onto the L4-5, L5-S1 posterolateral gutter on the right side. Using the power drill, posterior- lateral decortication was performed at L4-5, L5-S1 level until bleeding cortical bone was identified. The remaining bone grafting material was placed into the L4-5, L5-S1 posterior lateral gutter he order to accomplish posterolateral fusion at the L4-5, L5-S1 level. At this time the tulips were attached to the L4, L5, S1 pedicle screw shanks. After measuring the length of the rods, they were inserted into the tulips of the pedicle screws and locked in place using locking caps and torque limiting screwdriver bilaterally. Total 6 caps and 2 titanium rods was used in order to complete the posterior instrumentation construct. After all the hardware was placed, and confirmed with AP and lateral C-arm imaging, the wound was then irrigated with sterile normal saline and packed with Ray-Cece gauze for 3 min to accomplish hemostasis. After the gauze was removed the deep fascia was closed with #1 Vicryl suture. The subcutaneous layer was closed with 2-0 Vicryl. The skin was closed with skin giuseppe. Patient tolerated the procedure well. There were no complications. Neuro monitoring system was used to monitor patient's neurologic status th roughout entire procedure. There was no disturbance of the neural monitoring signals throughout the case. Complications: none Post-operative Condition: stable Disposition: PACU Plan for aftercare: Admit to inpatient hospital
[2022-07-21] MEDS: HYDROMORPHONE 2 MG INJ IV ×3 (16:13→16:31)
--- NOTE | 2022-07-21 16:15 | SUR.PHASEI ---
Received to PACU after general anesthesia. Airway patent, self maintained. Report from KARINA Alaniz and Fabián Marino CRNA. Glucose recheck = 147.
[2022-07-21] MEDS: OXYCODONE/ACETAMINOPHEN 5/325 TABLET 1 TAB PO ×2 (16:28→16:53)
[2022-07-21] MEDS: SODIUM CHLORIDE 0.9% 1,000 ML 100 ML IV (17:49)
[2022-07-21] MEDS: INSULIN LISPRO 100 UNIT/ML 3ML VIAL SUBCUT ×2 (18:00→21:30)
[2022-07-21] MEDS: HYDROMORPHONE 0.5 MG INJ IV (19:51)
[2022-07-21] MEDS: DOCUSATE 100 MG CAPSULE PO (21:22)
[2022-07-21] MEDS: hydroCHLOROthiazide 25 MG TABLET PO (21:22)
[2022-07-21] MEDS: TAMSULOSIN 0.4 MG CAPSULE PO (21:23)
[2022-07-21] MEDS: SENNOSIDES 8.6 MG TABLET 17.2 MG PO (21:23)
[2022-07-21] MEDS: ALPRAZolam 0.5 MG TABLET 1 MG PO (21:23)
[2022-07-21] MEDS: ATORVASTATIN 20 MG TABLET 40 MG PO (21:23)
[2022-07-21] MEDS: AMLODIPINE 5 MG TABLET PO (21:24)
[2022-07-21] MEDS: lisinopriL 20 MG TABLET PO (21:24)
[2022-07-21] MEDS: NAPROXEN 250 MG TABLET PO (21:24)
[2022-07-21] MEDS: PANTOPRAZOLE DR 20 MG TABLET PO (21:29)
[2022-07-22 04:00] VITALS: BP 155/57; PULSE 67; RESP 18; TEMP 37; O2SAT 96
[2022-07-22] MEDS: HYDROMORPHONE 0.5 MG INJ IV (04:03)
[2022-07-22] MEDS: CEFAZOLIN 2 GM/100 ML PREMIX 100 ML IV (04:04)
[2022-07-22 06:28] LABS: Hematocrit 33.5 % (41-53); Hemoglobin 11.5 g/dL (13.5-17.5)
[2022-07-22] MEDS: PANTOPRAZOLE DR 20 MG TABLET PO (06:33)
[2022-07-22 07:58] VITALS: BP 155/58; PULSE 63; RESP 20; TEMP 37; O2SAT 97
[2022-07-22] MEDS: INSULIN GLARGINE 100 UNIT/ML 3ML PEN 67 UNIT SUBCUT (09:05)
[2022-07-22] MEDS: INSULIN LISPRO 100 UNIT/ML 3ML VIAL SUBCUT ×2 (09:07→12:19)
[2022-07-22] MEDS: MULTIVITAMIN 1 TABLET 1 TAB PO (09:12)
[2022-07-22] MEDS: TAMSULOSIN 0.4 MG CAPSULE PO (09:12)
[2022-07-22] MEDS: DOCUSATE 100 MG CAPSULE PO (09:12)
[2022-07-22] MEDS: NAPROXEN 250 MG TABLET PO (09:12)
[2022-07-22] MEDS: OXYCODONE IR 5 MG TABLET PO ×2 (09:13→15:22)
[2022-07-22 09:14] VITALS: BP 159/47; PULSE 66
[2022-07-22] MEDS: hydroCHLOROthiazide 25 MG TABLET PO (09:14)
[2022-07-22] MEDS: atenoloL 50 MG TABLET PO (09:14)
[2022-07-22] MEDS: lisinopriL 20 MG TABLET PO (09:14)
[2022-07-22] MEDS: AMLODIPINE 5 MG TABLET PO (09:14)
--- NOTE | 2022-07-22 11:10 | CM.DANOTE ---
Initial DCP Assessment Note Pt is a 76 yo male, resident of [place], now POD#1 from spinal surgery by DR Cisneros PCP: Agapito Murguia Payer: Burton HENDERSON Reviewed chart, pt discussed in multidisciplinary rounds this morning. pt has planned for home w/family, now awaiting therapy eval which will assist with dispo recommendation No barriers identified at this time to patient's safe discharge home w/family to assist; close outpatient f/u recommended. CM team following closely for continued assessment of DC needs and coordination of plan SIM Flores Discharge Planning/Care Management CM Discharge Assessment Start: 07/22/22 10:53 Freq: Status: Active Protocol: Document 07/22/22 10:53 DEL (Rec: 07/22/22 11:10 DEL [id number]) Discharge Planning Assessment Assigned Casino Host SIM Archiabld DPOA/Assigned Designee Name Ana M () Home: cell: [phone] Contact Information Kelli Chin (daughter) [phone] Advance Directives? Yes Advance Directives on File No History Provided By Patient,Medical Record Has Patient been admitted in last 30 No days? Prior Living Arrangements House Household Members spouse Type of transporation used prior to Relies on Others admit Independent with ADL's Yes: Poor activity tolerance r /t pain Is patient alert and oriented? Yes Needs Assistance With Meal Prep,Home Chores / Shopping Barriers to Discharge No Comment No barriers identified at this time, patient eager to return home and is now awaiting therapy eval for assistance in dispo recs Discharge Plan Home Transportation Arrangement Family
--- NOTE | 2022-07-22 11:20 | PT.IIE ---
Current Diagnoses Spondylolisthesis, lumbar region (07/21/22) Spinal stenosis, lumbar region with neurogenic claudication (07/21/22) Surgery Performed Operation Date: 07/21/22 11:45 Actual Procedures p L4-5, L5-S1 TLIF -Robot(Not Applicable) - Adam Cisneros MD Surgical History (Last Reviewed 07/22/22 @ 11:35 by Suzan Pires PA-C) History of appendectomy History of hand surgery History of intestinal surgery History of tonsillectomy Hx of bilateral cataract extraction Medical History (Last Reviewed 07/22/22 @ 11:35 by Suzan Pires PA-C) Anxiety Easy bruisability Facet arthropathy, lumbar GERD (gastroesophageal reflux disease) Hearing loss HLD (hyperlipidemia) HTN (hypertension) Melanoma Prostate cancer (~2019) Sleep apnea Spinal stenosis of lumbar region Spondylolisthesis at L4-L5 level Physical Therapy Inpatient Evaluation/Re-Eval M1 PT/OT-IP Prior Functional Status Start: 07/22/22 12:57 Freq: NEEDED Status: Active Protocol: Document 07/22/22 11:20 AB (Rec: 07/22/22 13:09 AB [email or web address]) Medical Review Prior Functional Status Medical History Reviewed Yes Communication able to make needs known Mobility and Gait pt stated that he is independent with all mobilities and ambulation without AD Social History Household Members spouse Living Arrangements House Number of Floors (Floors) One Floor Number of Stairs To Enter/Railing? 1 step to enter Home Environment Walk in Shower Home Equipment Front Wheel Walker,Four Wheel Walker,Straight Cane,Shower Seat with Backrest,Hand Held Shower,Grab Bars Near Toilet, Grab Bars In Shower Additional Social History Comment pt stated that spouse will be able to assist him M2 PT-IP Current Condition Start: 07/22/22 12:57 Freq: NEEDED Status: Active Protocol: Document 07/22/22 11:20 AB (Rec: 07/22/22 13:09 AB [email or web address]) Physical Therapy Current Condition Current Condition Evaluation Date 07/22/22 Treatment Diagnosis s/p L4-5, L5S1 TLIF; difficulty in walking Onset Date 07/21/22 M3 PT-IP Subjective Start: 07/22/22 12:57 Freq: NEEDED Status: Active Protocol: Document 02/02/23 11:20 AB (Rec: 07/22/22 13:09 [email or web address]) Subjective Physical Therapy Visit Type Type Initial Evaluation Visit Start Time 11:20 Visit Stop Time 12:00 Total Visit Minutes 40 Number of INSTRUCTOR TRAINER CANINE SERVICE Visits 0 Physical Therapy Visit Comments Patient Comments wants to go home Therapy Pain Assessment Pain When Pain Assessed At Rest Pain Present Pain Present Pain Reported Location low back Intensity 4 Scale Used 5-6/10 after mobility Pain Management Techniques Apply Cold,Distraction, Modification of Treatment,Re- positioning,Timing of Activity with Medications M4 PT-IP Mobility and Gait Start: 07/22/22 12:57 Freq: NEEDED Status: Active Protocol: Document 07/22/22 11:20 AB (Rec: 07/22/22 13:09 [email or web address]) PT-Bed Mobility Assessment Rolling Type of Rolling Log Rolling Level of Assist Standby Assistance Supine to Sit Supine to Sit Standby Assistance Sit to Supine Sit to Supine Standby Assistance PT-Transfer Assessment Sit to and From Stand Sit to and from Stand Standby Assistance,Contact Guard Assistance,1 Person Assistance,Use of Upper Extremities Equipment Transfer Assistive Device Gait Belt,Front Wheeled Walker Orthotic/Prosthetic Devices or Brace: No Transfers Transfer Destination Chair Transfer Technique ambulated Transfer Ability Level of Assist Standby Assistance,Contact Guard Assistance,1 Person Assistance,Use of Upper Extremities Comments Mobility Comments educated pt regarding back precautions and log roll bed mobility. completed log roll supine <> sit SBA with cues provided. pt repeated and able to carry over task without cues provided. completed sit to stand CGA and ambulated in room and then towards the chair using FWW 40 ft CGA. pt agreeable to do stairs. educated on stair climbing. completed sit to stand from chair SBA and ambulated ~ 30 ft to platform step and completed up/down step using FWW CGA with initial cues but without cues on 2nd set. pt ambulated back to his room using FWW SBA. sat on the chair and positioned. call light and table placed within reach. informed nurse regarding pt's mobility and pt's request to go home today. Gait Assessment Gait Gait Assistance Required: Standby Assistance,Contact Guard Assist Distance (Feet) 40 Able to Maintain Weight Bearing Status Yes During Gait Assistive Devices Assistive Device Gait Belt,Front Wheeled Walker Orthotic/Prosthetic Devices or Brace: No Gait Deviations General Gait Pattern Decreased Stride Length, Decreased Feet Clearance Factors Limiting Gait Function Factors Limiting Gait Function Decreased Activity Tolerance, Decreased Strength,Limited Range of Motion,Pain,Poor Balance Stair Climbing Assessment Evaluation Level of Assist On Stairs Contact Guard Assistance Devices Stair Climbing Assistive Devices Front Wheel Walker Technique/Endurance Stair Climbing Direction Ascend and Descend Stair Climbing Technique Step to Step Number of Steps Climbed 1 Query Text: Stair Climbing Set # Repetitions (reps) 2 PT-Balance Assessment Sitting Balance and Reactions Static Sitting Balance Ability Normal Dynamic Sitting Balance Ability Normal Standing Balance and Reactions Static Standing Balance Ability Good Dynamic Standing Balance Ability Fair Device Used FWW M5 PT-IP Objective Assessments Start: 07/22/22 12:57 Freq: NEEDED Status: Active Protocol: Document 07/22/22 11:20 AB (Rec: 07/22/22 13:09 AB [email or web address]) Orientation Orientation/Cognition Level of Alertness Alert Orientation Name,Place Language Function Ability No Deficits Noted Safety Awareness Understands Safety Issues Memory Description No Deficits Noted Gross Range of Motion Lower Extremity ROM Assessment Within Functional Limits Strength Lower Extremity Strength Assessment Within Functional Limits Coordination Assessment Gross Coordination Gross Coordination WNL Sensation Assessment Sensation Gross Sensation WNL Muscle Tone Muscle Tone WNL Yes M6 PT-IP Treatment Start: 07/22/22 12:57 Freq: NEEDED Status: Active Protocol: Document 07/22/22 11:20 AB (Rec: 07/22/22 13:09 AB [email or web address]) Physical Therapy Treatment Education Education Provided Precautions,Weight Bearing Status,Post-Op Packet,Safety M7 PT-IP Assessment and Plan Start: 07/22/22 12:57 Freq: NEEDED Status: Active Protocol: Document 07/22/22 11:20 AB (Rec: 07/22/22 13:09 AB [email or web address]) PT Summary Assessment and Plan Potential Rehabilitation Potential Good Status of Condition at Evaluation Stable Summary Impairments Pain,ROM,Strength,Balance, Coordination,Sensation,Tone, Cognition,Bed Mobility, Transfers,Gait,Activity Tolerance Assessment Summary pt requiring SBA to CGA with mobility and will have his spouse to assist him at home. pt with good carryover of training provided. pt may go home when medically stable. Goals Bed Mobility Goal Independent Transfer Goal Independent,Front Wheeled Walker Gait Goal Independent,Front Wheel Walker Gait Distance 250 Other Goals up/down 1 step using FWW mod I Days to Meet Goals 3 Frequency of Treatment Frequency Of Treatment Twice a Day Treatment Plan Physical Therapy Treatment Plan Bed Mobility Training,Transfer Training,Gait Training, Therapeutic Exercise,Balance Retraining,Post Op Education, Discharge Planning,Hot or Cold Pack,Neuromuscular Re-ed, Coordination Retraining,Manual Therapy Precautions Lumbar Precautions Log Roll,No Twisting,Limit Bending,Lifting Restriction of 10 lbs,Gait Belt above Incisional Area Recommendations To Nursing Amount of Assist Needed 1 Person Assist Discharge Recommendations PT Discharge Recommendations Home with Assistance Transportation Needs at Discharge Private Vehicle
--- NOTE | 2022-07-22 11:33 | P.DS_ITS ---
History of Present Illness History of Present Illness Date Patient Seen: 07/22/22 Time Patient Seen: 07:30 Chief complaint: TLIF Narrative: Patient states he has moderate low back pain this morning. He is not worked with physical therapy or occupational therapy yet. He is using IV Dilaudid for pain. Overall he is feeling well when like to be discharged home today if he is cleared by PT. Discharge Providers Provider Date of admission: 07/21/22 09:50 Discharge Date: 07/22/22 Primary care physician: Agapito Murguia MD Consults: 07/21/22 17:04 Consult to Occupational Therapy Evaluate & Treat Comment: Physician Instructions: Evaluate and treat Consult to Physical Therapy Evaluate & Treat Comment: Physician Instructions: Evaluate and Treat Discharge provider: Suzan Pires PA-C Summary Hospital Course Discharge Diagnosis: 1. L4-5, L5-S1 spinal stenosis with neurogenic claudication 2. L4-5, L5-S1 spondylolisthesis Hospital Course: Operative Date/Time/Diagnoses Date of procedure: 07/21/22 Time of procedure: 12:30 Procedure & Clinicians Procedure: 1. L4-5, L5-S1 Postero-lateral and posterior interbody fusion 2. L4-5, L5-S1 interbody cage placement. 3. L4-5, L5-S1 decompressive laminectomy with bilateral facetecomies 4. L4-5, L5-S1 Posterior segmental instrumentation 5. [place] of bone marrow from iliac crest 6. Utilization of microsurgical technique and operating microscope Same procedure as scheduled: Yes Indications: Patient has been having chronic back pain and worsening lumbar radiculopathy. Patient failed multiple conservative management with worsening pain weakness and numbness in her lower extremity.? Patient has been having difficulty performing activity of daily living.? After discussing risks benefits of treatment options, patient elected proceed with surgery. Surgeon: Adam Cisneros Ebd Teacher: Sharron Kraus Click Yes if Unassisted: No Anesthesia Type: General Operative Notes Closure Type: primary Specimen(s): none sent Prosthetic devices, grafts, tissues, transplants, or devices: Globus CREO MIS screws, Rise cages Applied: catheter Estimated Blood Loss (mL): 200 Blood products transfused: none Status at Discharge Cognitive/behavioral status at discharge: at baseline, oriented Functional status at discharge: uses cane/walker Overall status at discharge: patient is progressing back to baseline Exam Vital Signs (past 8 hours): - 07/22/22 04:00 07/22/22 05:00 07/22/22 07:58 Temperature 98.6 F 98.6 F Pulse Rate 67 63 Respiratory Rate 18 20 Blood Pressure 155/57 H 155/58 H Pulse Oximetry 96 97 Oxygen Delivery Method Nasal Cannula Oxygen Flow Rate 2.5 2.5 2 Fraction of Inspired Oxygen 30 07/22/22 09:14 Temperature Pulse Rate 66 Respiratory Rate Blood Pressure 159/47 H Pulse Oximetry Oxygen Delivery Method Oxygen Flow Rate Fraction of Inspired Oxygen Fraction of Inspired Oxygen 30 Oxygen Delivery Method Nasal Cannula Oxygen Flow Rate 2 Narrative Exam Narrative: 76-year-old male, resting comfortably in bed, no acute distress. Lumbar dressings demonstrates some scant bloody discharge, right worse than left. No surrounding erythema, induration, or linda pus. Bilateral lower extremity: Motor functions are grossly intact, sensation is grossly intact to light touch, calves are soft and nontender to palpation. Objective Labs 07/22/22 06:02 Labs: Laboratory Results - last 24 hr 07/22/22 06:02 Hgb 11.5 L Hct 33.5 L PFSH Medical History Anxiety Easy bruisability Facet arthropathy, lumbar GERD (gastroesophageal reflux disease) Hearing loss HLD (hyperlipidemia) HTN (hypertension) Melanoma Prostate cancer (~2019) Sleep apnea Spinal stenosis of lumbar region Spondylolisthesis at L4-L5 level Surgical History History of appendectomy History of hand surgery History of intestinal surgery History of tonsillectomy Hx of bilateral cataract extraction Social History household members: spouse Smoking Status: Former smoker alcohol intake: current Discharge Assessment & Plan Assessment and Plan Assessment: -stable status post L4-5 L5-S1 TLIF -insulin-dependent diabetic Plan of Treatment: -mobilize with physical therapy. Weightbearing as tolerated with front wheel walker. No bending, lifting, twisting x6 weeks -continue multimodal pain management. Discouraged the use of IV pain meds, we will make Tylenol scheduled and encouraged oxycodone. -ordered point of care glucose ACHS checks --discontinue urinary catheter today once mobilizing well -DC home once cleared by PT/OT Discharge Plan Discharge Plan Patient Disposition: Home Discharge orders & Medications Prescriptions: New acetaminophen 500 mg capsule 500 mg PO Q6HR MDD Max 3000 mg per day PRN (Reason: Pain, Mild (1-3)) Qty: 90 0RF docusate sodium 100 mg Capsule 100 mg PO BID PRN (Reason: constipation) Qty: 20 0RF oxycodone 5 mg Tablet 5 mg PO Q3HR PRN (Reason: Pain, Moderate (4-6)) Qty: 42 0RF Continued oxaprozin [Daypro] 600 mg tablet 1,200 mg PO DAILY Qty: 60 2RF Rx Instructions: administer with food or milk multivitamin Tablet 1 tab PO DAILY aspirin 81 mg Tablet,Delayed Release (Dr/Ec) 81 mg PO DAILY tizanidine [Zanaflex] 4 mg tablet 4 mg PO PRN PRN (Reason: muscle spasticity) lisinopril 40 mg tablet 20 mg PO BID omeprazole 20 mg capsule,delayed release(DR/EC) 20 mg PO BID tramadol 50 mg tablet 50 mg PO TID PRN (Reason: Pain) alprazolam 1 mg tablet 1 mg PO BEDTIME Lantus Solostar U-100 Insulin 100 unit/mL (3 mL) insulin pen 67 unit SUBCUT QAM Label Comments: CBG prior to dose 137 atorvastatin 40 mg tablet 40 mg PO BEDTIME atenolol 50 mg tablet 50 mg PO DAILY amlodipine 5 mg tablet 5 mg PO BID insulin lispro [Humalog KwikPen Insulin] 100 unit/mL insulin pen 10 unit SUBCUT QPM PRN (Reason: Sliding scale for evening meal only) hydrochlorothiazide 25 mg tablet 25 mg PO BID tamsulosin [Flomax] 0.4 mg capsule 0.4 mg PO BID Follow up/Referrals: Agapito Murguia MD [Primary Care Provider] - Adam Cisneros MD [Physician] - As previously scheduled (Follow up with Dr Cisneros on 08/05/2022 @ 1:20 pm at [facility] in [place].) Diet/Activity/Treatments Diet: Diet as Tolerated Activity: No deep bending or twisting at the waist. No lifting more than 10 pounds. Cold/Heat Therapy: Heating pad to back as needed for pain. Other treatments: Medications: -OTC Tylenol 500 mg 1 tablet every 4 hours as needed for pain/fever. Max 6 tablets per day. -Oxycodone 5 mg take 1-2 tablets every 4 hours as needed for moderate-severe p ain (narcotic pain medication). -As needed medications: -Ducolax and /or MiraLax as needed for constipation from narcotic pain medications. -Pepcid AC as needed for stomach upset. Dressing/Wound care: -Keep dressing in place until postoperative follow-up office visit. -Okay to shower. Keep wound out of direct water stream. Can use PressNSeal plastic wrap to protect from shower stream. No soaking or submerging until all the scabs fall off (approximately 6 weeks). -Please call the office if dressing becomes wet, soiled, or saturated. Activities: -Limit bending, lifting, twisting x6 weeks. No deep bending (more than 90 degrees) or twisting at the waist. No lifting > 20 pounds. -Walk frequently. -Weight-bearing as tolerated. Use front wheeled walker, and progress to cane when safe. -Continue with home exercises as directed by your physical therapist. -Ice your incision as needed for pain/inflammation/swelling. Protect your skin with a folded pillowcase. -Incentive Spirometer (breathing device from hospital): 5-10xs every hour while awake for the first 1-2 weeks. Follow-up: -Follow-up with your surgeon or PA in the office in 10-14 days after surgery. -Follow-up with your surgeon 6 weeks postoperatively. Call the office if you have chest pain, shortness of breath, significant swelling that will not resolve with elevating, fever over 101?, significantly worsening pain, or are concerned you might need to go to the Emergency Room. [facility]: [phone] Skin/Wound/Dressing Care Report to your healthcare provider any signs of infection, such as:: chills, fever, night sweats, unusual drainage and unusual redness Dressing: May shower; keep dressing as dry as possible. If dressing becomes wet or dirty inside, may remove and replace with clean, dry gauze. No bathing or otherwise soaking incisions. Do not put any creams, lotions, or ointments on incisions. Visit Report/Discharge Packet Instructions: DI for Transforaminal Lumbar Interbody Fusion Stand Alone Forms: Patient Portal/API, Stroke Signs & Symptoms, Surgery Discharge Discharge Data Primary Care Provider: Agapito Murguia VTE Deep Vein Thrombosis/Pulmonary Embolism Present on Admission: No
--- NOTE | 2022-07-22 12:35 | OT.IP.EVAL ---
Current Diagnoses Spondylolisthesis, lumbar region (07/21/22) Spinal stenosis, lumbar region with neurogenic claudication (07/21/22) Surgery Performed Operation Date: 07/21/22 11:45 Actual Procedures p L4-5, L5-S1 TLIF -Robot(Not Applicable) - Adam Cisneros MD Past Medical History (Last Reviewed 07/22/22 @ 11:35 by Suzan Pires PA-C) Anxiety Easy bruisability Facet arthropathy, lumbar GERD (gastroesophageal reflux disease) Hearing loss HLD (hyperlipidemia) HTN (hypertension) Melanoma Prostate cancer (~2019) Sleep apnea Spinal stenosis of lumbar region Spondylolisthesis at L4-L5 level Surgical History (Last Reviewed 07/22/22 @ 11:35 by Suzan Pires PA-C) History of appendectomy History of hand surgery History of intestinal surgery History of tonsillectomy Hx of bilateral cataract extraction Occupational Therapy Inpatient Evaluation/Re-Eval M1 PT/OT-IP Prior Functional Status Start: 07/22/22 12:57 Freq: NEEDED Status: Active Protocol: Document 07/22/22 11:20 AB (Rec: 07/22/22 13:09 AB [id number]) Medical Review Prior Functional Status Medical History Reviewed Yes Communication able to make needs known Mobility and Gait pt stated that he is independent with all mobilities and ambulation without AD Social History Household Members spouse Living Arrangements House Number of Floors (Floors) One Floor Number of Stairs To Enter/Railing? 1 step to enter Home Environment Walk in Shower Home Equipment Front Wheel Walker,Four Wheel Walker,Straight Cane,Shower Seat with Backrest,Hand Held Shower,Grab Bars Near Toilet, Grab Bars In Shower Additional Social History Comment pt stated that spouse will be able to assist him M2 OT-IP Current Condition Start: 07/22/22 12:42 Freq: Status: Active Protocol: Document 07/22/22 12:00 [facility] (Rec: 07/22/22 13:10 [facility] [id number]) Occupational Therapy Current Condition Current Condition Evaluation Date 07/22/22 Treatment Diagnosis S/p L4-5, L5-S1 TLIF Diagnosis Onset Date 07/21/22 Post Operative Precautions Lumbar Precautions Log Roll,No Twisting,Limit Bending,Lifting Restriction of 10 lbs,Gait Belt above Incisional Area M3 OT- IP Subjective and Pain Start: 07/22/22 12:42 Freq: Status: Active Protocol: Document 07/22/22 12:00 [facility] (Rec: 07/22/22 13:10 [facility] [id number]) OT- Subjective Occupational Therapy Visit Type Type Initial Evaluation Visit Start Time 12:00 Visit Stop Time 12:35 Total Visit Minutes 35 Occupational Therapy Visit Comments Patient Comments Pt agreed to get dressed but not wanting to shower at this time. Patient/Caregiver Goals To go home. OT Pain Assessment Pain When Pain Assessed At Rest Pain Present Pain Present Pain Reported Location low back Intensity 4 Scale Used Numeric (0 - 10) M4 OT- IP ADL's Start: 07/22/22 12:42 Freq: Status: Active Protocol: Document 07/22/22 12:00 [facility] (Rec: 07/22/22 13:10 [facility] [id number]) OT GTS-Ptfq-Lwrblqt General Evaluation Self-Feeding Ability Independent OT ADL-Grooming General Evaluation Grooming Ability Independent OT ADL-Oral Care Comments Oral Care Comments Educated best to hinge at his hips or spit into a cup to best follow his back precautions. OT ADL-Dressing General Eval Upper Body Dressing Ability Independent Lower Body Dressing Ability Moderate Assistance Comments OT Dressing Comments Pt states does not wear socks at home and that his to assist. Assist for socks and tie shoes. Pt able to practice use of the firefighter type one to help yuliya his underwear and pants over his feet. OT ADL-Toileting General Evaluation Toileting Ability Standby Assistance Comments OT Toileting Comments Pt not having to go , but able to firefighter type one to wipe during practice. Suggested use of wet ones will be helpful. OT ADL-Bathing Comments OT Bathing Comments Pt wanting to shower at home. M5 OT- IP IADL's Start: 07/22/22 12:42 Freq: Status: Active Protocol: Document 07/22/22 12:00 [facility] (Rec: 07/22/22 13:10 [facility] [id number]) OT-Instrumental Activities of Daily Living Deficits IADL Deficits Identified Deficits Home Safety Awareness Awareness of Need for Assistance at Home Good Awareness Ability to Problem Solve Emergency Able to Problem Solve Situations Medication Management Medication Management Comments Pt a little groggy and best for his to assist at home. Money Management Money Management Comments Pt a little groggy and best for his to assist at home. Meal Preparation Meal Preparation Caregiver Provides Assist Professional System Administrator Professional System Administrator Caregiver Provides Assist M6 OT- IP Functional Cognition Start: 07/22/22 12:42 Freq: Status: Active Protocol: Document 07/22/22 12:00 [facility] (Rec: 07/22/22 13:10 [facility] [id number]) Cognitive Factors Limiting Selfcare Function Cognitive Ability Level of Alertness Alert Patient Orientation Name,Place,Situation Attention Span Ability Capable of Focused Attention, Capable of Sustained Attention Ability to Follow Commands Able to Follow One Step Commands Safety Awareness Decreased Recall of Precautions,Decreased Ability to Apply Precautions Cognitive Comments Cognitive Assessment Comments Pt is a bit groggy from the medications and not able to recall his back precautions and needing reminders to incorporate during ADL needs. OT- Vision and Hearing OT- Hearing Assessment OT- Hearing Assessment WFL OT- Vision Assessment Visual Acuity Glasses All The Time Visual Attentiveness WFL Occular Pursuits WFL M7 OT- IP Mobility and Balance Start: 07/22/22 12:42 Freq: Status: Active Protocol: Document 07/22/22 12:00 [facility] (Rec: 07/22/22 13:10 [facility] [id number]) OT-Transfer Assessment Sit to and From Stand Sit to and from Stand Standby Assistance Transfers Transfer Ability Standby Assistance Technique Transfer Destination Chair,Toilet Devices Transfer Assistive Devices Gait Belt,Front Wheeled Walker Comments Mobility Comments SBA to come to stand and to ambulate to and from the bathroom with the FWW . OT- Balance Assessment Sitting Balance and Reactions Static Sitting Balance Ability Normal Dynamic Sitting Balance Ability Good Standing Balance and Reactions Static Standing Balance Ability Good Dynamic Standing Balance Ability Good M8 OT- IP Objective Assessments Start: 07/22/22 12:42 Freq: Status: Active Protocol: Document 07/22/22 12:00 [facility] (Rec: 07/22/22 13:10 [facility] [id number]) OT-Muscle Tone Assessment Muscle Tone WNL Yes M9 OT- IP Assessment and Plan Start: 07/22/22 12:42 Freq: Status: Active Protocol: Document 07/22/22 12:00 [facility] (Rec: 07/22/22 13:10 [facility] [id number]) OT Summary Assessment and Plan Potential Rehabilitation Potential Excellent Analytic Complexity at Evaluation Low Summary OT Impairments Pain,Functional Mobility, Dressing,Toileting,Bathing, Shower Transfers Progress Towards Goals Progressing Toward Goals Assessment Summary Pt low complexity and main barriers are not able to recall his back precautions and needing cue to help incorporate during ADL needs. Pt has a supportive at home to assist. Pt realizing that he will have to slow down and thinking things through. Pt also aware that the pain medications are making him groggy. Pt to go home with assist when medically stable. Goals Grooming Goal Independent Dressing Goal Minimal Assistance Toileting Goal Independent Bathing Goal Standby Assistance Toilet Transfer Goal Independent Shower Transfer Goal Independent Days to Meet Goals 1 Frequency of Treatment Frequency Of Treatment Once a Day Treatment Plan OT Treatment Plan ADL Training,Functional Mobility,Patient/Family Education,Discharge Planning Other Treatment Recommendations and Next shower if still here Treatment Focus Discharge Recommendations OT Discharge Recommendations Home with Assistance Transportation Needs at Discharge Private Vehicle
--- NOTE | 2022-07-22 16:37 | PC.NURSE ---
Discharge note: Patient discharged per MD order and cleared by PT. Ambulating with FWW in room, voiding, pain adequately controlled. Discussed importance of F/U with Ortho on 08/14, home safety, mobility precautions and dressing care. Both patient and spouse verbalized understanding of discharge instructions. Home via private vehicle accompanied by spouse. Rx to be picked up on way home.
== END 2022-07-22 16:00 | disposition home or self-care (01) | DRG 455 ==
PROVIDERS: Admitting Provider Orthopaedic Surgery Orthopaedic Surgery of the Spine; Family Provider Family Medicine; PCP Internal Medicine; Referring Provider Orthopaedic Surgery Orthopaedic Surgery of the Spine; Visit Provider Orthopaedic Surgery Orthopaedic Surgery of the Spine
PROC: 0SG00AJ Fusion of Lumbar Vertebral Joint with Interbody Fusion Device, Posterior Approach, Anterior Column, Open Approach (ICD-10-PCS; principal; 2022-07-21 11:45)
DX: M48.062 Spinal stenosis, lumbar region with neurogenic claudication (principal); M43.16 Spondylolisthesis, lumbar region; M46.96 Unspecified inflammatory spondylopathy, lumbar region; M43.17 Spondylolisthesis, lumbosacral region; M48.07 Spinal stenosis, lumbosacral region; I10 Essential (primary) hypertension; K21.9 Gastro-esophageal reflux disease without esophagitis; Z79.4 Long term (current) use of insulin; Z87.891 Personal history of nicotine dependence; Z20.822 Contact with and (suspected) exposure to COVID-19; E11.65 Type 2 diabetes mellitus with hyperglycemia
CPT/HCPCS: 36415; 72100; 76000; 80048; 82962; 83036; 85014; 85018; 85025; 87635; 93005; 97116; 97161; 97165; 97535; C9803; C9290; J0171; J0330; J0690; J1100; J1170; J1815; J2405; J2704; J3010; J7121

== ENCOUNTER → 2024-04-03 11:16 | Outpatient (CLI) | payer OTHER, SELFPAY ==
[2022-07-21 17:07] VITALS: BMI 34.2
--- NOTE | 2024-04-03 11:42 | EKG_ITS ---
[id number] [address] Test Date: 2024-04-03 Pat Name: Calderon Pearson Department: [facility] Room: Gender: Male Childcare Provider: : 1945 Requested By: Order Number: [id number] Reading MD: Rodrigue Foley Measurements Intervals [place] Rate: 128 P: 268 NV: 152 QRS: 0 QRSD: 34 T: 269 QT: 350 QTc: 511 Interpretive Statements Significant artifact, and motion, repeat tracing recommended Electronically Signed On 04-04-2024 18:06:56 PDT by Rodrigue Foley
[2024-04-03 12:25] LABS: Add Manual Diff / Slide Review NO; Basophils Absolute Auto 0 /uL (0-100); Basophils Percent Auto 0.7 % (0-2); Eosinophils Absolute Auto 200 /uL (0-450); Hematocrit 42.8 % (41-53); Hemoglobin 14.9 g/dL (13.5-17.5); Lymphocytes Absolute Auto 1300 /uL (1100-4500); Lymphocytes Percent Auto 19.6 % (25-40); Mean Corpuscular HGB Conc 34.8 % (30-36); Mean Corpuscular Hemoglobin 31.2 PG (26-34); Mean Corpuscular Volume 89.6 fL (80-100); Monocytes Absolute Auto 700 /uL (0-900); Monocytes Percent Auto 10.1 % (3-14); Neutrophils Absolute Auto 4400 /uL (1500-7000); Neutrophils Percent Auto 66.6 % (50-75); Platelet Count 296 X10^3/uL (150-400); Red Blood Cell Count 4.78 X10^6/uL (4.5-5.9); Red Cell Distribution Width 13.7 % (11.6-14.8); White Blood Cell Count 6.6 X10^3/uL (4.5-11.0)
[2024-04-03 12:58] LABS: BUN Creatinine Ratio 20.3 (6-22); Blood Urea Nitrogen 29 mg/dL (9-20); Calcium 9.9 mg/dL (8.4-10.2); Carbon Dioxide 27 mmol/L (22-32); Chloride 99 mmol/L (98-107); Estimated Glomerular Filt Rate 50 mL/min (>60); Glucose 214 mg/dL (80-110); HEMOLYSIS < 15 (0-50); Potassium 4.3 mmol/L (3.4-5.1); Sodium 138 mmol/L (137-145)
== END ==
PROVIDERS: Family Provider Family Medicine; PCP Internal Medicine; Referring Provider Orthopaedic Surgery Orthopaedic Surgery of the Spine; Visit Provider Orthopaedic Surgery Orthopaedic Surgery of the Spine
DX: Z01.818 Encounter for other preprocedural examination (principal); Z01.812 Encounter for preprocedural laboratory examination
CPT/HCPCS: 36415; 80048; 85025; 93005

== ENCOUNTER 2024-04-11 10:39 | Inpatient (IN) | payer OTHER, SELFPAY ==
[2022-07-21 17:07] VITALS: BMI 34.2
[2024-04-04 08:40] VITALS: BMI 34.5
[2024-04-11] VITALS (11 sets, daily range): BP systolic 143–175; BP diastolic 51–77; PULSE 52–65; RESP 11–18; TEMP 36.2–36.7; O2SAT 95–100; BMI 33.2; BMI 33.3
--- NOTE | 2024-04-11 | DI.RAD.S_ITS ---
PROCEDURE: XR LUMBAR SPINE 2 V INDICATIONS: TLIF L3-4, extension L4-S1 TECHNIQUE: 2 fluoroscopic spot images of the lumbar spine were acquired. COMPARISON: [facility], [facility]ENDRA, XR LUMBAR SPINE 2-3V, 07/21/2022, 16:14. FINDINGS / IMPRESSION: Two limited fluoroscopic spot images are submitted which demonstrate postsurgical changes of the lower lumbar spine with pedicle screws, posterior fixation rods and intervertebral metallic cages and or disc prostheses L3-4, L4-5, L5-S1. Procedure details reported separately. Fluoroscopic dosimetry is not delineated. Dictated by: Ezequiel Marin M.D. on 04/14/2024 at 10:14 Approved by: Ezequiel Marin M.D. on 04/14/2024 at 10:17
[2024-04-11] MEDS: ACETAMINOPHEN 325 MG TABLET 975 MG PO (11:24)
[2024-04-11] MEDS: LACTATED RINGERS 1,000 ML 42 ML IV (11:24)
--- NOTE | 2024-04-11 11:28 | PM.PREOP ---
Pre-operative Note Interval Note History & Physical reviewed/Exam performed by Physician: Yes Changes to H&P: No
[2024-04-11] MEDS: CEFAZOLIN 2 GM/100 ML PREMIX 100 ML IV ×2 (12:20→20:56)
--- NOTE | 2024-04-11 12:43 | SUR.OPER ---
Prone on spine table, head in foam head support, padded chest and pelvic supports, gel pad at knees, lower legs supported by pillows; nipples, genitalia and toes free of pressure, arms secured on foam padded arm boards at <90 degrees abduction. Tape over blanket at thigh secured to table.
[2024-04-11] MEDS: BUPIVACAINE 0.25% (PF) 30 ML, EPINEPHrine 0.15 MG INJ (12:49)
[2024-04-11] MEDS: BUPIVACAINE LIPOSOME 266 MG/20 ML VIAL INJ (15:00)
--- NOTE | 2024-04-11 15:10 | PM.OP.1 ---
Operative Date/Time/Diagnoses Date of procedure: 04/11/24 Time of procedure: 12:00 Pre-op diagnosis: 1. L3-4 spondylolisthesis 2. L3-4 foraminal stenosis Post-op diagnosis: same Procedure & Clinicians Procedure: 1. L3-4 Postero-lateral and posterior interbody fusion 2. L3-4 interbody cage placement. 3. L3-4 decompressive laminectomy with bilateral facetecomies 4. L3-4 Posterior non-segmental instrumentation 5. Hilliards of bone marrow from iliac crest 6. Utilization of microsurgical technique and operating microscope Same procedure as scheduled: Yes Indications: Patient has been having chronic back pain and worsening lumbar radiculopathy. Patient had history of L4-S1 fusion and has been doing well until recently. Patient's new MRI shows significant L3-4 degenerative disc disease spondylosis with foraminal stenosis and spondylolisthesis correlating with patient's symptoms. Patient failed multiple conservative management with worsening pain weakness and numbness in his lower extremity. Patient has been having difficulty performing activity of daily living. After discussing risks benefits of treatment options, patient elected proceed with surgery. Surgeon: Adam Cisneros Tennis Net Maker: Sharron Kraus Click Yes if Unassisted: No Anesthesia Type: General Operative Notes Closure Type: primary Specimen(s): none sent Prosthetic devices, grafts, tissues, transplants, or devices: Globus CREO MIS screws, Rise cage Applied: catheter Estimated Blood Loss (mL): 100 Blood products transfused: none Procedure in detail: Patient was seen in the preoperative area. Risks and benefits of the surgery was discussed with the patient. Informed consent was obtained from the patient and placed in the chart. Surgical site was marked. Patient was taken to the operative room. General anesthesia was administered. Prophylactic antibiotic was given to the patient less than 30 min before the incision was made. Patient was placed into a prone position on the Abdulkadir table. Patient's back was then prepped and draped in the sterile fashion. Time-out was performed at this time. Using patient's previous scar incision was made over the L4-S1 interval on the left side. Fascia was incised in line with skin incision. Patient's previously placed hardware over the L4-5 level was identified by dissecting down to the level the hardware using a Bovie and a De Paz. The sergio was exposed between the L4 and L5 screw Tulip in order for attachment of the add on in implant. The Globus and MARS retractors was then placed into the wound and docked onto the L3 lamina using C-arm guidance. Using microsurgical technique and operating microscope a laminectomy facetectomy was performed by removing the L3 lamina and the L3-4 facet. The laminectomy and facetectomy was performed in order to decompress patient's cauda equina as well as the nerve roots exiting at the L3-4 level. The disc space at L3-4 level was identified next. And a total diskectomy was performed at L3-4 level. The endplates were decorticated using a rasp and shaver. The total diskectomy and decortication was performed at L3-4 level in order to to accomplish a L3-4 fusion. The local bone from the laminectomy and facetectomy was saved for local bone grafting. After the total diskectomy and decortication was completed, Globus viacell bone graft material was combined with local bone that was harvested earlier. At this time, a separate skin is incision was made over the iliac crest on the right. A Jamshidi needle was inserted into the iliac crest through a separate skin incision. 5 cc of bone marrow aspiration was obtained through the separate skin incision using a Jamshidi needle from the iliac crest. The bone marrow aspiration was combined with local bone and the Viacel bone grafting material. The bone grafting material was placed into the L3-4 interbody space along with a expandable cage. The cage was expanded to its maximum height using the torque limiting screwdriver. At this time a mirror image incision was made on the right side. The fascia was incised in line with the skin incision. Patient's previously placed hardware on the right side was then exposed in the same fashion as it was on the right side. The fusion mass on the left side was exposed by performing a left-sided hemilaminectomy at L4-5 level. The hemilaminectomy was performed using the Kerrison rongeur to undercut the lamina as well removing additional epidural scar tissue for purpose of decompressing the epidural space. The fusion appeared to be solid at L4-5 level. Globus MARS retractor was inserted and docked onto the L3-4 posterolateral gutter. Using the power drill, posterior-lateral decortication was performed at L3-4 level until bleeding cortical bone was identified. The remaining bone grafting material was placed into the L3-4 posterior lateral gutter he order to accomplish posterolateral fusion at the L3-4 level. Using the double C-arm technique, pedicle screws were placed into the L3 pedicles on the right. This was done by placing the Jamshidi needle into the pedicles, then placing the guidewires over the Jamshidi needle, and finally placing the cannulated screws over the guidewires on the right side. A L3 pedicle screw was placed into the left side using the same technique over Jamshidi and guidewire. The globus expansion system was used to attach the L3 pedicle screw to the sergio between L4-5 pedicle bilaterally. After all locking bolt was tightened down using torque limiting drivers, locking sergio was then placed into the tulips and locked into place used torque limiting screwdriver. After the pedicle screws were placed, 2 titanium rods was locked into the heads of the pedicle screws using locking caps and torque limiting screwdriver. All hardware was found to have good purchase. After all the hardware was placed, and confirmed with AP and lateral C-arm imaging, the wound was then irrigated with sterile normal saline and packed with Ray-Cece gauze for 3 min to accomplish hemostasis. After the gauze was removed the deep fascia was closed with #1 Vicryl suture. The subcutaneous layer was closed with 2-0 Vicryl. The skin was closed with skin giuseppe. Patient tolerated the procedure well. There were no complications. Neuro monitoring was used throughout the entire case. Monitoring signals were all stable throughout entire procedure without any disturbance. The Operation could not have been safely performed without compromising the technical result or length of the procedure, without the assistance of a skilled surgical garment fitter. The surgical garment fitter was medically necessary for proper positioning, retraction and manipulation of instruments, proper exposure, surgical preparation, and manipulation of tissue. Complications: none Post-operative Condition: stable Disposition: PACU Plan for aftercare: Admit to inpatient hospital
[2024-04-11] MEDS: OXYCODONE IR 5 MG TABLET PO (15:40)
[2024-04-11] MEDS: ONDANSETRON 4 MG/2 ML INJ IV (15:41)
[2024-04-11] MEDS: hydrOXYzine 50 MG/ML INJ 25 MG IM (15:42)
[2024-04-11] MEDS: LACTATED RINGERS 1,000 ML 125 ML IV (16:24)
[2024-04-11] MEDS: OXYCODONE IR 10 MG TABLET PO ×2 (17:23→21:13)
[2024-04-11] MEDS: ACETAMINOPHEN 325 MG TABLET 650 MG PO (17:23)
[2024-04-11] MEDS: lisinopriL 20 MG TABLET PO (20:56)
[2024-04-11] MEDS: SENNOSIDES 8.6 MG TABLET 17.2 MG PO (20:56)
[2024-04-11] MEDS: TAMSULOSIN 0.4 MG CAPSULE PO (20:56)
[2024-04-11] MEDS: DOCUSATE 100 MG CAPSULE PO (20:56)
[2024-04-11] MEDS: ALPRAZolam 0.25 MG TABLET 1 MG PO (20:57)
[2024-04-11] MEDS: PANTOPRAZOLE DR 20 MG TABLET PO (20:57)
[2024-04-11] MEDS: AMLODIPINE 5 MG TABLET PO (20:57)
[2024-04-11] MEDS: ATORVASTATIN 20 MG TABLET 40 MG PO (20:58)
[2024-04-12] VITALS (8 sets, daily range): BP systolic 146–170; BP diastolic 54–61; PULSE 73–90; RESP 16–22; TEMP 37.1–38.1; O2SAT 90–95
[2024-04-12] MEDS: OXYCODONE IR 10 MG TABLET PO ×4 (00:21→15:25)
[2024-04-12] MEDS: LACTATED RINGERS 1,000 ML 125 ML IV (00:21)
[2024-04-12] MEDS: CEFAZOLIN 2 GM/100 ML PREMIX 100 ML IV (04:11)
[2024-04-12 05:26] LABS: Hematocrit 38.3 % (41-53); Hemoglobin 12.9 g/dL (13.5-17.5)
--- NOTE | 2024-04-12 07:44 | PM.PNPO.1 ---
Subjective Subjective Date Patient Seen: 04/12/24 Time Patient Seen: 07:44 Interval history: Pt sitting up in bed, c/o low back pain. Has not been OOB yet. Exam Vital Signs (past 8 hours): Fraction of Inspired Oxygen 28 SaO2/FiO2 Ratio 342 Oxygen Delivery Method Nasal Cannula Oxygen Flow Rate 3 Narrative Exam Narrative: 5/5 strength in hip flexors, quadriceps, hamstrings, PF, DF, EHL bilaterally. Sensation to light touch intact throughout BLE. Calves soft and compressible. Unable to assess low back dressing d/t positioning in bed. Objective Labs 04/12/24 05:17 Labs: Laboratory Results - last 24 hr 04/12/24 05:17 Hgb 12.9 L Hct 38.3 L PFSH Medical History Easy bruisability Melanoma Spinal stenosis of lumbar region Prostate cancer (~2019) GERD (gastroesophageal reflux disease) HLD (hyperlipidemia) HTN (hypertension) Sleep apnea Hearing loss Spondylolisthesis at L4-L5 level Facet arthropathy, lumbar Anxiety Surgical History (Updated 04/12/24 @ 07:45 by Sharron Kraus PA-C) History of back surgery (07/20/22) Hx of bilateral cataract extraction History of hand surgery History of intestinal surgery History of tonsillectomy History of appendectomy Social History household members: spouse Smoking Status: Former smoker alcohol intake: current Assessment & Plan Post-op Assessment and plan (1) S/P lumbar fusion: Assessment and Plan narrative: 1) PT, multimodal pain control 2) SCDs for VTE prophylaxis 3) Mcgee out today 4) Likely d/c home tomorrow. May needs SNF if spouse is only available caregiver d/t his size. Will follow for PT progress. Postoperative Procedures: Procedures Operation Date: 04/11/24 12:15 Actual Procedure Side Surgeon p L3-4 TLIF, Extension to L4-S1 instrumentation Adam Cisneros MD Postoperative day: 1 Quality VTE Deep Vein Thrombosis/Pulmonary Embolism Present on Admission: No
[2024-04-12] MEDS: MULTIVITAMIN 1 TABLET 1 TAB PO (08:32)
[2024-04-12] MEDS: CHLORTHALIDONE 25 MG TABLET PO (08:34)
[2024-04-12] MEDS: TAMSULOSIN 0.4 MG CAPSULE PO ×2 (08:35→20:24)
[2024-04-12] MEDS: lisinopriL 20 MG TABLET PO ×2 (08:36→20:24)
[2024-04-12] MEDS: DOCUSATE 100 MG CAPSULE PO ×2 (08:39→20:24)
[2024-04-12] MEDS: PANTOPRAZOLE DR 20 MG TABLET PO ×2 (08:40→20:24)
[2024-04-12] MEDS: AMLODIPINE 5 MG TABLET PO ×2 (08:40→20:25)
[2024-04-12] MEDS: atenoloL 50 MG TABLET 100 MG PO (08:42)
[2024-04-12] MEDS: INSULIN LISPRO 100 UNIT/ML 3ML VIAL SUBCUT ×3 (08:47→21:28)
[2024-04-12] MEDS: INSULIN GLARGINE 100 UNIT/ML 3ML PEN SUBCUT (08:52)
--- NOTE | 2024-04-12 09:50 | OT.IP.EVAL ---
Current Diagnoses Spinal stenosis, lumbar region with neurogenic claudication (04/11/24) Arthrodesis status (04/11/24) Surgery Performed Operation Date: 04/11/24 12:15 Actual Procedures p L3-4 TLIF, Extension to L4-S1 instrumentation - Adam Cisneros MD Past Medical History (Last Reviewed 07/22/22 @ 11:35 by Suzan Pires PA-C) Anxiety Easy bruisability Facet arthropathy, lumbar GERD (gastroesophageal reflux disease) Hearing loss HLD (hyperlipidemia) HTN (hypertension) Melanoma Prostate cancer (~2019) Sleep apnea Spinal stenosis of lumbar region Spondylolisthesis at L4-L5 level Surgical History (Last Updated 04/04/24 @ 08:34 by Amy Conklin RN) History of appendectomy History of back surgery (07/20/22) History of hand surgery History of intestinal surgery History of tonsillectomy Hx of bilateral cataract extraction Occupational Therapy Inpatient Evaluation/Re-Eval M1 PT/OT-IP Prior Functional Status Start: 04/12/24 07:44 Freq: NEEDED Status: Active Protocol: Document 04/12/24 10:00 [facility] (Rec: 04/12/24 10:21 [facility] [id number]) Medical Review Prior Functional Status Communication Independent Mobility and Gait Independent Activities of Daily Living and IADL's Pt needing assist with socks. Social History Household Members spouse Living Arrangements House Number of Floors (Floors) One Floor Number of Stairs To Enter/Railing? Platform step and then step to get into the house. Home Environment High Toilet,Walk in Shower Home Equipment Front Wheel Walker,Four Wheel Walker,Straight Cane,Shower Seat with Backrest,Hand Held Shower,Grab Bars Near Toilet, Grab Bars In Shower Additional Social History Comment Per pt has a supportive to assist him at home. M2 OT-IP Current Condition Start: 04/12/24 10:00 Freq: Status: Active Protocol: Document 04/12/24 10:00 [facility] (Rec: 04/12/24 10:21 [facility] [id number]) Occupational Therapy Current Condition Current Condition Evaluation Date 04/12/24 Treatment Diagnosis S/P L3-4, extension L4-S1 instrumentation Diagnosis Onset Date 04/11/24 Post Operative Precautions Lumbar Precautions Log Roll,No Twisting,Limit Bending,Lifting Restriction of 10 lbs,Gait Belt above Incisional Area M3 OT- IP Subjective and Pain Start: 04/12/24 10:00 Freq: Status: Active Protocol: Document 04/12/24 10:00 [facility] (Rec: 04/12/24 10:21 [facility] [id number]) OT- Subjective Occupational Therapy Visit Type Type Initial Evaluation Visit Start Time 09:23 Visit Stop Time 09:50 Occupational Therapy Visit Comments Patient Comments Pt agreed to get up. Patient/Caregiver Goals TO go home. OT Pain Assessment Pain When Pain Assessed At Rest Pain Present Pain Present Pain Reported Location low back Intensity 4 Scale Used Numeric (0 - 10) M4 OT- IP ADL's Start: 04/12/24 10:00 Freq: Status: Active Protocol: Document 04/12/24 10:00 [facility] (Rec: 04/12/24 10:21 [facility] [id number]) OT [id number] Comments OT Self-Feeding Comments Not at meal time. OT ADL-Grooming Comments OT Grooming Comments NOt performed. OT ADL-Oral Care Comments Oral Care Comments Educated best to spit into a cup or hinge at his hips for oral care needs. OT ADL-Dressing General Eval Lower Body Dressing Ability Maximum Assistance Areas Needing Assistance Socks OT ADL-Toileting Comments OT Toileting Comments Pt has been using a urinal. M5 OT- IP IADL's Start: 04/12/24 10:00 Freq: Status: Active Protocol: Document 04/12/24 10:00 [facility] (Rec: 04/12/24 10:21 [facility] [id number]) OT-Instrumental Activities of Daily Living Home Safety Awareness Awareness of Need for Assistance at Home Good Awareness Home Safety Comments Pt is a bit groogy and and not able to recall his back precautions. Meal Preparation Meal Preparation Caregiver Provides Assist Producer Arborist Manager Producer Arborist Manager Caregiver Provides Assist M6 OT- IP Functional Cognition Start: 04/12/24 10:00 Freq: Status: Active Protocol: Document 04/12/24 10:00 [facility] (Rec: 04/12/24 10:21 [facility] [id number]) Cognitive Factors Limiting Selfcare Function Cognitive Ability Level of Alertness Drowsy Patient Orientation Name,Place,Situation Attention Span Ability Capable of Focused Attention, Capable of Sustained Attention Ability to Follow Commands Able to Follow One Step Commands with Increased Time, Able to Follow One Step Commands with Repetition Memory Description Short Term Impaired Safety Awareness Decreased Recall of Precautions,Decreased Ability to Apply Precautions Cognitive Comments Cognitive Assessment Comments Pt is a bit groggy and not able to recall his back precautions ever after education. Pt admits that he is very sensitive to medications and anesthesia, OT- Vision and Hearing OT- Hearing Assessment OT- Hearing Assessment Slight [place] OT- Vision Assessment Visual Acuity Glasses All The Time Visual Attentiveness WFL Occular Pursuits WFL M7 OT- IP Mobility and Balance Start: 04/12/24 10:00 Freq: Status: Active Protocol: Document 04/12/24 10:00 [facility] (Rec: 04/12/24 10:21 [facility] [id number]) OT- Bed Mobility Assessment Supine to Sit Supine to Sit Assist Contact Guard Assistance OT-Transfer Assessment Sit to and From Stand Sit to and from Stand Minimal Assistance Transfers Transfer Ability Minimal Assistance Technique Transfer Destination Bed,Chair Transfer Technique Stand Step Pivot Devices Transfer Assistive Devices Gait Belt,Front Wheeled Walker Comments Mobility Comments CGA with bed mobility and ANAHY to stand and to transfer to the recliner. Pt on 2 L o2 and at 96% and on RA after transfer 86%. O2 replaced and back up to 95%. OT- Balance Assessment Sitting Balance and Reactions Static Sitting Balance Ability Good Dynamic Sitting Balance Ability Fair Standing Balance and Reactions Static Standing Balance Ability Fair Dynamic Standing Balance Ability Fair M8 OT- IP Objective Assessments Start: 04/12/24 10:00 Freq: Status: Active Protocol: Document 04/12/24 10:00 [facility] (Rec: 04/12/24 10:21 [facility] [id number]) OT Gross Range of Motion Upper Extremity Range of Motion Assessment Within Functional Limits M9 OT- IP Assessment and Plan Start: 04/12/24 10:00 Freq: Status: Active Protocol: Document 04/12/24 10:00 [facility] (Rec: 04/12/24 10:21 [facility] [id number]) OT Summary Assessment and Plan Potential Rehabilitation Potential Excellent Analytic Complexity at Evaluation Low Summary OT Impairments Pain,Balance,Functional Cognition,Functional Mobility, Grooming,Dressing,Toileting, Bathing,Toilet Transfers, Shower Transfers,Activity Tolerance Progress Towards Goals Slow Progress due to Pain,Slow Progress due to Medical Issues,Slow Progress due to Activity Tolerance Assessment Summary Pt low complexity and main barriers are pain and groggy. Pt hopeful to go home when medically stable, pending progress and ability to of his to assist with his needs - may possibly need SNF as pt had an extensive back surgery. Goals Self-Feeding Goal Independent Grooming Goal Independent Dressing Goal Independent Toileting Goal Standby Assistance Bathing Goal Minimal Assistance Toilet Transfer Goal Independent Shower Transfer Goal Standby Assistance Days to Meet Goals 10 Frequency of Treatment Other frequency 5x/week Treatment Plan OT Treatment Plan ADL Training,Functional Mobility,Patient/Family Education,Discharge Planning Discharge Recommendations OT Discharge Recommendations Home vs SNF Transportation Needs at Discharge Private Vehicle,Wheelchair/ Cabulance
--- NOTE | 2024-04-12 10:27 | PT.IIE ---
Current Diagnoses Spinal stenosis, lumbar region with neurogenic claudication (04/11/24) Arthrodesis status (04/11/24) Surgery Performed Operation Date: 04/11/24 12:15 Actual Procedures p L3-4 TLIF, Extension to L4-S1 instrumentation - Adam Cisneros MD Surgical History (Last Updated 04/04/24 @ 08:34 by Amy Conklin, RN) History of appendectomy History of back surgery (07/20/22) History of hand surgery History of intestinal surgery History of tonsillectomy Hx of bilateral cataract extraction Medical History (Last Reviewed 07/22/22 @ 11:35 by Suzan Pires PA-C) Anxiety Easy bruisability Facet arthropathy, lumbar GERD (gastroesophageal reflux disease) Hearing loss HLD (hyperlipidemia) HTN (hypertension) Melanoma Prostate cancer (~2019) Sleep apnea Spinal stenosis of lumbar region Spondylolisthesis at L4-L5 level Physical Therapy Inpatient Evaluation/Re-Eval M1 PT/OT-IP Prior Functional Status Start: 04/12/24 07:44 Freq: NEEDED Status: Active Protocol: Document 04/12/24 10:00 [facility] (Rec: 04/12/24 10:21 [facility] [id number]) Medical Review Prior Functional Status Communication Independent Mobility and Gait Independent Activities of Daily Living and IADL's Pt needing assist with socks. Social History Household Members spouse Living Arrangements House Number of Floors (Floors) One Floor Number of Stairs To Enter/Railing? Platform step and then step to get into the house. Home Environment High Toilet,Walk in Shower Home Equipment Front Wheel Walker,Four Wheel Walker,Straight Cane,Shower Seat with Backrest,Hand Held Shower,Grab Bars Near Toilet, Grab Bars In Shower Additional Social History Comment Per pt has a supportive to assist him at home. M2 PT-IP Current Condition Start: 04/12/24 07:44 Freq: NEEDED Status: Active Protocol: Document 04/12/24 09:25 [facility] (Rec: 04/12/24 10:27 [facility] [id number]) Physical Therapy Current Condition Current Condition Evaluation Date 04/12/24 Treatment Diagnosis L3-4 fusion, expansion L4-S1 instrumentation M3 PT-IP Subjective Start: 04/12/24 07:44 Freq: NEEDED Status: Active Protocol: Document 10/24/24 09:25 [facility] (Rec: 04/12/24 10:27 [facility] [id number]) Subjective Physical Therapy Visit Type Type Initial Evaluation Visit Start Time 09:25 Visit Stop Time 09:40 Number of SUPERVISOR TITLE Visits 0 Physical Therapy Visit Comments Patient Comments Pt hypoverbal and does answer questions when asked Therapy Pain Assessment Pain When Pain Assessed At Rest Pain Present Pain Present Pain Reported Location low back Intensity 4 Scale Used Numeric (0 - 10) M4 PT-IP Mobility and Gait Start: 04/12/24 07:44 Freq: NEEDED Status: Active Protocol: Document 04/12/24 09:25 [facility] (Rec: 04/12/24 10:27 [facility] [id number]) PT-Bed Mobility Assessment Rolling Type of Rolling Log Rolling,Roll to Left Level of Assist Contact Guard Assistance,1 Person Assistance Supine to Sit Supine to Sit Contact Guard Assistance,1 Person Assistance,Bedrails Scooting Scooting to Edge of Bed Contact Guard Assistance PT-Transfer Assessment Sit to and From Stand Sit to and from Stand Minimal Assistance,1 Person Assistance,Use of Upper Extremities Equipment Transfer Assistive Device Gait Belt,Front Wheeled Walker Orthotic/Prosthetic Devices or Brace: No Transfers Transfer Destination Chair Transfer Technique Ambulation Transfer Ability Level of Assist Minimal Assistance,1 Person Assistance,Use of Upper Extremities Comments Mobility Comments Cues for hand placement. Tried taking O2 off patient and he con't to desat between 85-91%, staying around 86% on RA once sitting up in chair and so returned to 2L O2. BP and HR in RUE with sittin/65, 86. Pt denies light-headedness with getting up. Gait Assessment Gait Gait Assistance Required: Minimum Assistance Distance (Feet) 3 Able to Maintain Weight Bearing Status Yes During Gait Assistive Devices Assistive Device Gait Belt,Front Wheeled Walker Orthotic/Prosthetic Devices or Brace: No Gait Deviations General Gait Pattern Antalgic,Decreased Stride Length,Decreased Feet Clearance Factors Limiting Gait Function Factors Limiting Gait Function Decreased Activity Tolerance, Difficulty Following Directions,Incoordination,Pain ,Poor Balance,Poor Safety Awareness Comments Gait Comments Antalgic gait and O2 sats dropping on RA with mobility PT-Balance Assessment Sitting Balance and Reactions Static Sitting Balance Ability Good Dynamic Sitting Balance Ability Good Standing Balance and Reactions Static Standing Balance Ability Fair Dynamic Standing Balance Ability Fair Device Used RW M5 PT-IP Objective Assessments Start: 04/12/24 07:44 Freq: NEEDED Status: Active Protocol: Document 04/12/24 09:25 [facility] (Rec: 04/12/24 10:27 MB [id number]) Orientation Orientation/Cognition Level of Alertness Alert Orientation Name,Age,Birthday,Month,Date, Year,Day of Week,Place, Situation Language Function Ability Hard of Hearing Safety Awareness Decreased Safety Awareness Memory Description No Deficits Noted Comments Pt is groggy this morning Gross Range of Motion Upper Extremity ROM Impairments Defer to OT Lower Extremity ROM Assessment Within Functional Limits Strength Lower Extremity Strength Ankle B DF and great toe extension 4 +/5 Comments Strength Comments Did not MMT B knees and hips today, functional with standing and stepping Coordination Assessment Gross Coordination Gross Coordination Impaired Sensation Assessment Comments Sensation Comments Pt does not follow commands today M6 PT-IP Treatment Start: 04/12/24 07:44 Freq: NEEDED Status: Active Protocol: Document 04/12/24 09:25 [facility] (Rec: 04/12/24 10:27 MB [id number]) Physical Therapy Treatment Exercises Exercises Ankle Pumps Education Education Provided Precautions,Post-Op Packet, Safety M7 PT-IP Assessment and Plan Start: 04/12/24 07:44 Freq: NEEDED Status: Active Protocol: Document 04/12/24 09:25 [facility] (Rec: 04/12/24 10:27 MB [id number]) PT Summary Assessment and Plan Potential Rehabilitation Potential Good Status of Condition at Evaluation Evolving Summary Impairments Pain,ROM,Strength,Balance, Coordination,Sensation,Bed Mobility,Transfers,Gait, Activity Tolerance Progress Towards Goals Slow Progress due to Activity Tolerance Assessment Summary Pt is a 78 y/o male presenting POD 1 large lumbar surgery with fusion L3-4 and expansion of instrumentation L4-S1. Pt is groggy on assessment and he denies light-headedness though his O2 sats are low on RA with mobility and therapy redons 2L O2 once pt is up in chair. Pt will benefit from ongoing PT to improve mobility and I. Recommend home vs SNF for d/c. Goals Bed Mobility Goal Independent Transfer Goal Independent,Front Wheeled Walker Gait Goal Independent,Front Wheel Walker Gait Distance 100 Other Goals Pt will ascend and descend 2 platform steps with LRAD and no more than min A to allow safe home entrance. Days to Meet Goals 5 Frequency of Treatment Frequency Of Treatment Twice a Day Other frequency Decrease to 1x/day if cannot tolerate twice Treatment Plan Physical Therapy Treatment Plan Bed Mobility Training,Transfer Training,Gait Training, Therapeutic Exercise,Balance Retraining,Post Op Education, Discharge Planning,Hot or Cold Pack,Neuromuscular Re-ed, Coordination Retraining,Manual Therapy Precautions Lumbar Precautions Log Roll,No Twisting,Limit Bending,Lifting Restriction of 10 lbs,Gait Belt above Incisional Area Recommendations To Nursing Amount of Assist Needed 2 Person Assist Discharge Recommendations PT Discharge Recommendations Home vs SNF Transportation Needs at Discharge Private Vehicle,Wheelchair/ Cabulance
--- NOTE | 2024-04-12 14:23 | CM.DANOTE ---
Initial DCP Assessment Visit Note Reviewed EMR and team rounds for status updates. Went to meet with pt at bedside, however he was found to be sleeping. Pt lives independently in his own home with spouse in [place]. His spouse will transport him home once he's medically cleared for home d/c. Payor: [employer] Adv Attending: Dr. Cisneros Pt is a 78 year-old M post-op day 1 from a TLIF surgery. He did well postoperatively except for some low blood pressure and O2 needs. He was able to work with therapies, however he kept desatting with exertion. He has a hx of worsening and constant lumbar pain that has not been relieved by multiple conservative efforts at pain reduction. The pain has become prohibitive and he is limited in in ADL's and qualify of life. DCP will continue to monitor for final d/c recommendations and needs for d/c home. Discharge Planning/Care Management CM Discharge Assessment Start: 04/12/24 14:13 Freq: Status: Active Protocol: Document 04/12/24 14:13 [facility] (Rec: 04/12/24 14:23 [facility] [id number]) Discharge Planning Assessment Assigned Caramel Cutter Machine SIM Ayala Advance Directives? Yes Advance Directives on File No History Provided By Medical Record Expected Length of Stay 2 Has Patient been admitted in last 30 No days? Prior Living Arrangements House Household Members spouse Type of transporation used prior to Drives own vehicle admit Independent with ADL's Yes Is patient alert and oriented? Yes Comment N/A Caregiver for Another No DME Already Rented / Owned Bath Bench,Elevated Toilet Seat,FWW / Walker,Cane Comment 4WW Patient/Family Preference OP PT Therapy Comment No barriers identified at this time, patient eager to return home and is now awaiting therapy eval for assistance in dispo recs Discharge Plan Home Transportation Arrangement Family Whiteboard Updated in Patient Room with Yes name and ext. # of Caramel Cutter Machine Review Status In Process Please Provide Date Initial DC 04/12/24 Assessment Was Performed Pre-Anesthesia Assessment Start: 04/04/24 08:40 Freq: Status: Complete Protocol: Document 04/04/24 08:40 [facility] (Rec: 04/04/24 09:30 [facility] [id number]) Pre-Anesthesia Assessment PAC Comment 04/05/24 Phone assessment. Patient Information Reviewed Via Phone Assessment Assessment Completed With Patient,Spouse Comment Ana M Diagnostic Results BMP/CMP,CBC,EKG Comment 04/03/24 at . Primary Care Provider Agapito Murguia Seen Specialist in Last 12 Months Yes Specialist Seen Orthopedist Primary Language [place]guillan Preferred Language [place]guill[place] Mold Filler Required No Height 175.26 cm Weight 106.141 kg Body Mass Index (BMI) 34.5 Hearing Ability Hearing Impaired Visual Assist Glasses Dentition Type Teeth, Natural Present Barriers to Learning None Other Aids Yes: CPAP Hx Anesthesia Reactions No: Morphine causes severe Paranoia Hx Family Anesthesia Reaction No Hx Malignant Hyperthermia No Hx Blood Transfusions No Anesthesia Review Requested No Color Developer No alcohol intake current alcohol intake frequency a few times a week Smoking Status Former smoker Tobacco type cigarettes how long ago did patient quit smoking 1979 Substance Use Type opiates,prescription drug Pain Present Pain Reported Comment Back pain. Musculoskeletal Symptoms Back Pain History of Falling (Recent or History of No ) Patient is completely paralyzed or No completely immobile Mental Status Oriented to own ability Comment Will bring walker. Is patient on oxygen? No Does patient have MOONEY/SOB Yes: MOONEY due to back pain Hx Sleep Apnea Yes CPAP/BIPAP use prescribed and used routinely Currently Taking a Beta Giovanna Yes: Atenolol 100mg daily. Can You Climb a Flight of Stairs Without Yes SOB Hx Chest Pain No Hx SOB Yes: MOONEY due to back pain Hx Syncope or Dizziness No Anti-Coagulant Therapy Yes: Aspirin 81mg daily. Has a Planting Machine Operator No Cardiac Testing No Hx Pacemaker/ICD No Gastrointestinal Symptoms Reflux Bladder Pattern Nocturia Urinary Catheter Present No Hx Urinary Self Catheterization No Diabetes Yes: Pt checks blood sugar twice a day HgbA1C 7.3 Date 07/21/22 Hx Drug Resistant Organism No Presence of External or Internal Medical Yes: Raza eye IOL, CPAP, back Devices hardware. Have you had any close contact with No someone diagnosed with COVID-19? Are you experiencing any of these No symptoms symptoms? Received a COVID vaccine? No Marital Status Lives With spouse Current Living Arrangements House Number of Floors (Floors) One Floor Number of Stairs To Enter/Railing? 2 steps without railing. Support System Spouse Does the Patient Have Assistance After Yes Surgery Patient Discharge Plan Description Return Home Do You Have Any Spiritual Beliefs That No May Affect Your HC Choices? Do You Have Any Cultural Practices That No May Affect Your HC Choices? Health Care Proxy/Next of Kin Ana M Pearson - Health Care Proxy Emergency Contact Name Kelli Chin (daughter) Emergency Contact Advance Directives? Yes Advance Directives on File No Requested Patient Bring Advanced Yes Directives DOS PAC Instructions Assistance for 24 hours post- op,Bring CPAP/BIPAP,Diabetes instructions,Durable medical equipment,Medications to take/ avoid,Nasal antibiotic,No ETOH /petroleum product on skin DOS ,NPO,Post-op transportation, Pre-op antibiotic,Pre-surgical wash,Sensory aids,Sturdy shoes/comfortable clothes,Do not bring valuables and remove jewelry
--- NOTE | 2024-04-12 14:35 | PT.IPTN ---
Current Diagnoses Spinal stenosis, lumbar region with neurogenic claudication (04/11/24) Arthrodesis status (04/11/24) Surgery Performed Operation Date: 04/11/24 12:15 Actual Procedures p L3-4 TLIF, Extension to L4-S1 instrumentation - Adam Cisneros MD Physical Therapy Treatment Note M2 PT-IP Current Condition Start: 04/12/24 07:44 Freq: NEEDED Status: Active Protocol: Document 04/12/24 09:25 MB (Rec: 04/12/24 10:27 MB [id number]) Physical Therapy Current Condition Current Condition Evaluation Date 04/12/24 Treatment Diagnosis L3-4 fusion, expansion L4-S1 instrumentation M3 PT-IP Subjective Start: 04/12/24 07:44 Freq: NEEDED Status: Active Protocol: Document 04/12/24 15:01 TS (Rec: 04/12/24 15:22 TS [id number]) Subjective Physical Therapy Visit Type Type Treatment Note Visit Start Time 14:35 Visit Stop Time 15:00 Number of DATA WAREHOUSING ARCHITECT Visits 1 Physical Therapy Visit Comments Patient Comments Pt found resting in bed, he is agreeable to PT. Therapy Pain Assessment Pain When Pain Assessed During Mobility Pain Present Pain Present Pain Reported Location low back Intensity 5 M4 PT-IP Mobility and Gait Start: 04/12/24 07:44 Freq: NEEDED Status: Active Protocol: Document 04/12/24 15:01 TS (Rec: 04/12/24 15:22 TS [id number]) PT-Bed Mobility Assessment Rolling Type of Rolling Log Rolling,Roll to Left Level of Assist Contact Guard Assistance,1 Person Assistance Supine to Sit Supine to Sit Contact Guard Assistance,1 Person Assistance,Bedrails PT-Transfer Assessment Sit to and From Stand Sit to and from Stand Minimal Assistance,1 Person Assistance Equipment Transfer Assistive Device Gait Belt,Front Wheeled Walker Orthotic/Prosthetic Devices or Brace: No Comments Mobility Comments Pt found resting on RA, Spo2 93%. Recalls 0/3 spinal precautions. Supine to sit CGA , pt elevates HOB. Spo2 desats to high 80's, pt has some wheezing, requires cues for PLB, Spo2 increased to mid 90' s. STS with FWW Ra, pt requests to use toilet. Pt ambulates in hallway ~80'CGA/ SBA, has some unsteadiness and shakiness in his legs. He ambulates bakc to the room, was left in the chair, all needs met. Gait Assessment Gait Gait Assistance Required: Standby Assistance,Contact Guard Assist Distance (Feet) 80 Able to Maintain Weight Bearing Status Yes During Gait Assistive Devices Assistive Device Gait Belt,Front Wheeled Walker Gait Deviations General Gait Pattern Antalgic,Decreased Stride Length,Decreased Feet Clearance Factors Limiting Gait Function Factors Limiting Gait Function Decreased Activity Tolerance, Difficulty Following Directions,Incoordination,Pain ,Poor Balance,Poor Safety Awareness PT-Balance Assessment Sitting Balance and Reactions Static Sitting Balance Ability Good Dynamic Sitting Balance Ability Fair Standing Balance and Reactions Static Standing Balance Ability Fair Dynamic Standing Balance Ability Fair Device Used FWW M5 PT-IP Objective Assessments Start: 04/12/24 07:44 Freq: NEEDED Status: Active Protocol: Document 04/12/24 09:25 MB (Rec: 04/12/24 10:27 MB [id number]) Orientation Orientation/Cognition Level of Alertness Alert Orientation Name,Age,Birthday,Month,Date, Year,Day of Week,Place, Situation Language Function Ability Hard of Hearing Safety Awareness Decreased Safety Awareness Memory Description No Deficits Noted Comments Pt is groggy this morning Gross Range of Motion Upper Extremity ROM Impairments Defer to OT Lower Extremity ROM Assessment Within Functional Limits Strength Lower Extremity Strength Ankle B DF and great toe extension 4 +/5 Comments Strength Comments Did not MMT B knees and hips today, functional with standing and stepping Coordination Assessment Gross Coordination Gross Coordination Impaired Sensation Assessment Comments Sensation Comments Pt does not follow commands today M6 PT-IP Treatment Start: 04/12/24 07:44 Freq: NEEDED Status: Active Protocol: Document 04/12/24 15:01 TS (Rec: 04/12/24 15:22 TS [id number]) Physical Therapy Treatment Education Education Provided Precautions,Post-Op Packet, Safety M7 PT-IP Assessment and Plan Start: 04/12/24 07:44 Freq: NEEDED Status: Active Protocol: Document 04/12/24 15:01 TS (Rec: 04/12/24 15:22 TS [id number]) PT Summary Assessment and Plan Potential Rehabilitation Potential Good Summary Impairments Pain,ROM,Strength,Balance, Coordination,Sensation,Bed Mobility,Transfers,Gait, Activity Tolerance Progress Towards Goals Progressing Toward Goals Assessment Summary Calderon is making progress with his mobility. He performs bed mobility CGA. He progressed his gait to ~80' SBA/CGA. He has some unsteadiness with gait due to weakness and shakiness in his LE's. His spo2 destas to mid 80's with mobility, recovers up to mid 90's with cues for PLB, RN was notified. PT is recommending pt return home with assist. Goals Bed Mobility Goal Independent Transfer Goal Independent,Front Wheeled Walker Gait Goal Independent,Front Wheel Walker Gait Distance 100 Other Goals Pt will ascend and descend 2 platform steps with LRAD and no more than min A to allow safe home entrance. Days to Meet Goals 5 Frequency of Treatment Frequency Of Treatment Twice a Day Treatment Plan Physical Therapy Treatment Plan Bed Mobility Training,Transfer Training,Gait Training, Therapeutic Exercise,Balance Retraining,Post Op Education, Discharge Planning,Hot or Cold Pack,Neuromuscular Re-ed, Coordination Retraining,Manual Therapy Precautions Lumbar Precautions Log Roll,No Twisting,Limit Bending,Lifting Restriction of 10 lbs,Gait Belt above Incisional Area Recommendations To Nursing Amount of Assist Needed 1 Person Assist Discharge Recommendations PT Discharge Recommendations Home with Assistance Transportation Needs at Discharge Private Vehicle
--- NOTE | 2024-04-12 15:53 | PC.NURSE ---
Pt A/O Med x 2 for discomfort w/ good relief. SL intact. Bulky dsg to back CDI Sat in chair w/o incidence. Call light w/in reach, bed alarm on for pt safety. Continue w/plan of care.
[2024-04-12] MEDS: ACETAMINOPHEN 325 MG TABLET 650 MG PO (20:23)
[2024-04-12] MEDS: OXYCODONE IR 5 MG TABLET PO (20:23)
[2024-04-12] MEDS: SENNOSIDES 8.6 MG TABLET 17.2 MG PO (20:24)
[2024-04-12] MEDS: ALPRAZolam 0.25 MG TABLET 1 MG PO (20:24)
[2024-04-12] MEDS: ATORVASTATIN 20 MG TABLET 40 MG PO (20:24)
[2024-04-13] MEDS: OXYCODONE IR 10 MG TABLET PO ×3 (00:31→06:30)
[2024-04-13 00:47] VITALS: O2SAT 95
[2024-04-13] MEDS: ACETAMINOPHEN 325 MG TABLET 650 MG PO ×3 (03:21→20:30)
[2024-04-13 07:27] VITALS: O2SAT 96
[2024-04-13 08:00] VITALS: BP 143/54; PULSE 60; RESP 14; TEMP 36.3; O2SAT 98
[2024-04-13] MEDS: INSULIN LISPRO 100 UNIT/ML 3ML VIAL SUBCUT ×4 (09:02→20:31)
[2024-04-13] MEDS: CHLORTHALIDONE 25 MG TABLET PO (09:03)
[2024-04-13] MEDS: INSULIN GLARGINE 100 UNIT/ML 3ML PEN SUBCUT (09:03)
[2024-04-13] MEDS: atenoloL 50 MG TABLET 100 MG PO (09:04)
[2024-04-13] MEDS: AMLODIPINE 5 MG TABLET PO ×2 (09:04→20:29)
[2024-04-13] MEDS: TAMSULOSIN 0.4 MG CAPSULE PO ×2 (09:04→20:29)
[2024-04-13] MEDS: PANTOPRAZOLE DR 20 MG TABLET PO ×2 (09:04→20:29)
[2024-04-13] MEDS: MULTIVITAMIN 1 TABLET 1 TAB PO (09:04)
[2024-04-13] MEDS: DOCUSATE 100 MG CAPSULE PO ×2 (09:05→20:29)
[2024-04-13] MEDS: lisinopriL 20 MG TABLET PO ×2 (09:05→20:29)
--- NOTE | 2024-04-13 10:09 | PC.NURSE ---
Patient is resting supine in bed, he is comfortable and was given pain medication this morning. Dressing to back will be changed before patient goes home. It is cd&Intact at this time. He is working with physical therapy and will ask for pain medication when needed. Resting comfortably and patient is heplocked.
--- NOTE | 2024-04-13 10:10 | PT.IPTN ---
Current Diagnoses Spinal stenosis, lumbar region with neurogenic claudication (04/11/24) Arthrodesis status (04/11/24) Surgery Performed Operation Date: 04/11/24 12:15 Actual Procedures p L3-4 TLIF, Extension to L4-S1 instrumentation - Adam Cisneros MD Physical Therapy Treatment Note M2 PT-IP Current Condition Start: 04/12/24 07:44 Freq: NEEDED Status: Active Protocol: Document 04/12/24 09:25 MB (Rec: 04/12/24 10:27 MB [id number]) Physical Therapy Current Condition Current Condition Evaluation Date 04/12/24 Treatment Diagnosis L3-4 fusion, expansion L4-S1 instrumentation M3 PT-IP Subjective Start: 04/12/24 07:44 Freq: NEEDED Status: Active Protocol: Document 04/13/24 10:44 TS (Rec: 04/13/24 10:51 TS [id number]) Subjective Physical Therapy Visit Type Type Treatment Note Visit Start Time 10:10 Visit Stop Time 10:40 Number of MANAGER [employer]ION[employer] SALES Visits 2 Physical Therapy Visit Comments Patient Comments Pt found resting in bed, he is agreeable to PT. Therapy Pain Assessment Pain When Pain Assessed At Rest Pain Present Pain Present Pain Reported Location low back Intensity 1 M4 PT-IP Mobility and Gait Start: 04/12/24 07:44 Freq: NEEDED Status: Active Protocol: Document 04/13/24 10:44 TS (Rec: 04/13/24 10:51 TS [id number]) PT-Bed Mobility Assessment Rolling Type of Rolling Log Rolling,Roll to Left Level of Assist Contact Guard Assistance,1 Person Assistance Supine to Sit Supine to Sit Contact Guard Assistance,1 Person Assistance,Bedrails Sit to Supine Sit to Supine Minimal Assistance,1 Person Assistance Scooting Scooting to Edge of Bed Standby Assistance PT-Transfer Assessment Sit to and From Stand Sit to and from Stand Contact Guard Assistance,1 Person Assistance Equipment Transfer Assistive Device Gait Belt,Front Wheeled Walker Orthotic/Prosthetic Devices or Brace: No Comments Mobility Comments SPo2 97% on 2L's, at rest on RA 95%. Supine to sit with logroll CGA, pt dmeonstrates carryover. He recalls 2/3 spinla precautions(no lifting) . STS with FWW CGA. He ambulates ~80' SBA with FWW. He perfroms steps x2 with FWW CGA. Sit to supine into bed Ra for LE's. Spo2 desats to mid 80's once back in bed, stayed in low mid 90's during session. pt was left on 1L of o2 Spo2 92%. Gait Assessment Gait Gait Assistance Required: Standby Assistance Distance (Feet) 80 Able to Maintain Weight Bearing Status Yes During Gait Assistive Devices Assistive Device Gait Belt,Front Wheeled Walker Gait Deviations General Gait Pattern Antalgic,Decreased Stride Length,Decreased Feet Clearance Factors Limiting Gait Function Factors Limiting Gait Function Decreased Activity Tolerance, Difficulty Following Directions,Incoordination,Pain ,Poor Balance,Poor Safety Awareness Stair Climbing Assessment Evaluation Level of Assist On Stairs Contact Guard Assistance,1 Person Assistance Devices Stair Climbing Assistive Devices Front Wheel Walker Technique/Endurance Stair Climbing Direction Ascend and Descend Stair Climbing Technique Step to Step Number of Steps Climbed 2 PT-Balance Assessment Sitting Balance and Reactions Static Sitting Balance Ability Good Dynamic Sitting Balance Ability Fair Standing Balance and Reactions Static Standing Balance Ability Fair Dynamic Standing Balance Ability Fair Device Used FWW M5 PT-IP Objective Assessments Start: 04/12/24 07:44 Freq: NEEDED Status: Active Protocol: Document 04/12/24 09:25 MB (Rec: 04/12/24 10:27 MB [id number]) Orientation Orientation/Cognition Level of Alertness Alert Orientation Name,Age,Birthday,Month,Date, Year,Day of Week,Place, Situation Language Function Ability Hard of Hearing Safety Awareness Decreased Safety Awareness Memory Description No Deficits Noted Comments Pt is groggy this morning Gross Range of Motion Upper Extremity ROM Impairments Defer to OT Lower Extremity ROM Assessment Within Functional Limits Strength Lower Extremity Strength Ankle B DF and great toe extension 4 +/5 Comments Strength Comments Did not MMT B knees and hips today, functional with standing and stepping Coordination Assessment Gross Coordination Gross Coordination Impaired Sensation Assessment Comments Sensation Comments Pt does not follow commands today M6 PT-IP Treatment Start: 04/12/24 07:44 Freq: NEEDED Status: Active Protocol: Document 04/13/24 10:44 TS (Rec: 04/13/24 10:51 TS [id number]) Physical Therapy Treatment Education Education Provided Precautions,Post-Op Packet, Safety M7 PT-IP Assessment and Plan Start: 04/12/24 07:44 Freq: NEEDED Status: Active Protocol: Document 04/13/24 10:44 TS (Rec: 10/25/24 10:51 TS [id number]) PT Summary Assessment and Plan Potential Rehabilitation Potential Good Summary Impairments Pain,ROM,Strength,Balance, Coordination,Sensation,Bed Mobility,Transfers,Gait, Activity Tolerance Progress Towards Goals Progressing Toward Goals Assessment Summary Calderon continues to make progress with his mobility. He does lack good safety awareness at times. He has some difficulty recalling spinal precautions. His Spo2 remained in low to mid 90's with mobility but did desat once back in bed ot mid 80's. Pt was left in bed on 1L Spo2 92%. PT is recommending home vs SNF at this time. Due to o2 deman he may need SNF before d/c home. Goals Bed Mobility Goal Independent Transfer Goal Independent,Front Wheeled Walker Gait Goal Independent,Front Wheel Walker Gait Distance 100 Other Goals Pt will ascend and descend 2 platform steps with LRAD and no more than min A to allow safe home entrance. Days to Meet Goals 5 Frequency of Treatment Frequency Of Treatment Twice a Day Treatment Plan Physical Therapy Treatment Plan Bed Mobility Training,Transfer Training,Gait Training, Therapeutic Exercise,Balance Retraining,Post Op Education, Discharge Planning,Hot or Cold Pack,Neuromuscular Re-ed, Coordination Retraining,Manual Therapy Precautions Lumbar Precautions Log Roll,No Twisting,Limit Bending,Lifting Restriction of 10 lbs,Gait Belt above Incisional Area Recommendations To Nursing Amount of Assist Needed 1 Person Assist Discharge Recommendations PT Discharge Recommendations Home vs SNF Transportation Needs at Discharge Private Vehicle,Wheelchair/ Cabulance
--- NOTE | 2024-04-13 10:40 | OT.IP.TRT ---
Current Diagnoses Spinal stenosis, lumbar region with neurogenic claudication (04/11/24) Arthrodesis status (04/11/24) Surgery Performed Operation Date: 04/11/24 12:15 Actual Procedures p L3-4 TLIF, Extension to L4-S1 instrumentation - Adam Cisneros MD Occupational Therapy Treatment Note M2 OT-IP Current Condition Start: 04/12/24 10:00 Freq: Status: Active Protocol: Document 04/12/24 10:00 [facility] (Rec: 04/12/24 10:21 [facility] [id number]) Occupational Therapy Current Condition Current Condition Evaluation Date 04/12/24 Treatment Diagnosis S/P L3-4, extension L4-S1 instrumentation Diagnosis Onset Date 04/11/24 Post Operative Precautions Lumbar Precautions Log Roll,No Twisting,Limit Bending,Lifting Restriction of 10 lbs,Gait Belt above Incisional Area M3 OT- IP Subjective and Pain Start: 04/12/24 10:00 Freq: Status: Active Protocol: Document 04/13/24 10:42 [facility] (Rec: 04/13/24 10:52 [facility] [id number]) OT- Subjective Occupational Therapy Visit Type Type Treatment Note Visit Start Time 10:10 Visit Stop Time 10:40 Occupational Therapy Visit Comments Patient Comments Pt agreed to get up. Patient/Caregiver Goals TO go home. OT Pain Assessment Pain When Pain Assessed At Rest Pain Present Pain Present Pain Reported Location low back Intensity 1 Scale Used Numeric (0 - 10) M4 OT- IP ADL's Start: 04/12/24 10:00 Freq: Status: Active Protocol: Document 04/13/24 10:42 [facility] (Rec: 04/13/24 10:52 [facility] [id number]) OT ADL-Grooming General Evaluation Grooming Ability Independent OT ADL-Oral Care General Eval Oral Care Ability Independent Comments Oral Care Comments Educated best to spit into a cup or hinge at his hips for oral care needs. OT ADL-Dressing Comments OT Dressing Comments Pt's nixon have to assist otherwise to get LB dressing equipment. OT ADL-Toileting General Evaluation Toileting Ability Standby Assistance Comments OT Toileting Comments Pt able to stand with the FWW over the toilet to urinate with SBA. OT ADL-Bathing Comments OT Bathing Comments NOt performed. M5 OT- IP IADL's Start: 04/12/24 10:00 Freq: Status: Active Protocol: Document 04/12/24 10:00 [facility] (Rec: 04/12/24 10:21 [facility] [id number]) OT-Instrumental Activities of Daily Living Home Safety Awareness Awareness of Need for Assistance at Home Good Awareness Home Safety Comments Pt is a bit groogy and and not able to recall his back precautions. Meal Preparation Meal Preparation Caregiver Provides Assist Vb Developer Vb Developer Caregiver Provides Assist M6 OT- IP Functional Cognition Start: 04/12/24 10:00 Freq: Status: Active Protocol: Document 04/13/24 10:42 [facility] (Rec: 04/13/24 10:52 [facility] [id number]) Cognitive Factors Limiting Selfcare Function Cognitive Ability Level of Alertness Alert Safety Awareness Decreased Recall of Precautions,Decreased Ability to Apply Precautions Cognitive Comments Cognitive Assessment Comments Pt able to state 2/3 back precautions and needing vc to incorporate during ADL and mobility needs. VC to keep the FWW in front of him, to push up from the bed and reach back to the bed with his hands for safety. M7 OT- IP Mobility and Balance Start: 04/12/24 10:00 Freq: Status: Active Protocol: Document 04/13/24 10:42 [facility] (Rec: 04/13/24 10:52 [facility] [id number]) OT- Bed Mobility Assessment Supine to Sit Supine to Sit Assist Standby Assistance,Bedrails Sit to Supine Sit to Supine Assist Minimal Assistance OT-Transfer Assessment Sit to and From Stand Sit to and from Stand Standby Assistance,Contact Guard Assistance Transfers Transfer Ability Standby Assistance Technique Transfer Destination Bed,Chair Transfer Technique Stand Step Pivot Devices Transfer Assistive Devices Gait Belt,Front Wheeled Walker Comments Mobility Comments O2 on 2L 97%. RA at 94% after brushing his teeth on RA 92%. Pt back in bed at 88% and place 1L of O2 on 92%. Nursing okay to decrease O2 at 1%/ Nursing states to will get pt a incentive spirometer. OT- Balance Assessment Sitting Balance and Reactions Static Sitting Balance Ability Good Dynamic Sitting Balance Ability Good Standing Balance and Reactions Static Standing Balance Ability Good Dynamic Standing Balance Ability Fair M8 OT- IP Objective Assessments Start: 04/12/24 10:00 Freq: Status: Active Protocol: Document 04/12/24 10:00 [facility] (Rec: 04/12/24 10:21 [facility] [id number]) OT Gross Range of Motion Upper Extremity Range of Motion Assessment Within Functional Limits M9 OT- IP Assessment and Plan Start: 04/12/24 10:00 Freq: Status: Active Protocol: Document 04/13/24 10:42 [facility] (Rec: 04/13/24 10:52 [facility] [id number]) OT Summary Assessment and Plan Potential Rehabilitation Potential Good Analytic Complexity at Evaluation Low Summary OT Impairments Pain,Balance,Functional Cognition,Functional Mobility, Grooming,Dressing,Toileting, Bathing,Toilet Transfers, Shower Transfers,Activity Tolerance Progress Towards Goals Slow Progress due to Cognition Assessment Summary Pt still not able to recall his back precautions and needing MAX vc for safety. Pt needing ANAHY to stand from lower surfaces and to assist to get his legs back into bed. Pt states to sleep in a recliner at home. Goals Self-Feeding Goal Independent Grooming Goal Independent Dressing Goal Independent Toileting Goal Standby Assistance Bathing Goal Minimal Assistance Toilet Transfer Goal Independent Shower Transfer Goal Standby Assistance Days to Meet Goals 5 Frequency of Treatment Other frequency 5x/week Treatment Plan OT Treatment Plan ADL Training,Functional Mobility,Patient/Family Education,Discharge Planning Discharge Recommendations OT Discharge Recommendations SNF Rehab,Home vs SNF Other Discharge Recommendations SNF pending need of O2 and to continue to train pt for back precautions and pt has decreased STM and needing MAX vc to incorporate safety needs . Otherwise home wiht 10/01 assist and HH Transportation Needs at Discharge Private Vehicle,Wheelchair/ Cabulance
[2024-04-13] MEDS: OXYCODONE IR 5 MG TABLET PO ×2 (11:04→20:30)
--- NOTE | 2024-04-13 13:14 | PT.IPTN ---
Current Diagnoses Spinal stenosis, lumbar region with neurogenic claudication (04/11/24) Arthrodesis status (04/11/24) Surgery Performed Operation Date: 04/11/24 12:15 Actual Procedures p L3-4 TLIF, Extension to L4-S1 instrumentation - Adam Cisneros MD Physical Therapy Treatment Note M2 PT-IP Current Condition Start: 04/12/24 07:44 Freq: NEEDED Status: Active Protocol: Document 04/12/24 09:25 MB (Rec: 04/12/24 10:27 MB [id number]) Physical Therapy Current Condition Current Condition Evaluation Date 04/12/24 Treatment Diagnosis L3-4 fusion, expansion L4-S1 instrumentation M3 PT-IP Subjective Start: 04/12/24 07:44 Freq: NEEDED Status: Active Protocol: Document 04/13/24 13:14 AB (Rec: 04/13/24 16:51 AB [id number]) Subjective Physical Therapy Visit Type Type Treatment Note Visit Start Time 13:14 Visit Stop Time 13:45 Number of PEOPLE GREETER Visits 0 Physical Therapy Visit Comments Patient Comments agreeable to do PT M4 PT-IP Mobility and Gait Start: 04/12/24 07:44 Freq: NEEDED Status: Active Protocol: Document 04/13/24 13:14 AB (Rec: 04/13/24 16:51 AB [id number]) PT-Bed Mobility Assessment Rolling Type of Rolling Log Rolling Level of Assist Contact Guard Assistance Supine to Sit Supine to Sit Contact Guard Assistance, Minimal Assistance Sit to Supine Sit to Supine Contact Guard Assistance, Minimal Assistance PT-Transfer Assessment Sit to and From Stand Sit to and from Stand Contact Guard Assistance,1 Person Assistance,Use of Upper Extremities Equipment Transfer Assistive Device Gait Belt,Front Wheeled Walker Orthotic/Prosthetic Devices or Brace: No Transfer Ability Level of Assist Contact Guard Assistance Comments Mobility Comments pt supine in bed and agreeable to do PT. O2 sat at RA: 90- 93%. reviewed back precautions with pt and pt only recalled 1/3. educated pt regarding back precautions again. pt completed log roll supine to sit x 2 attempts to sit up. min A and max cues needed. pt unable to recall how to do log roll supine to sit and tends to twist and get up with BLE up in bed. pt able to sit on EOB. O2 sat decreased: 86%. provided pt with O2 at 1/2L/ min. and sat at 96% after ~ 15 sed. pt agreed to walk. sit to stand from EOB CGA and cues for techniques and safety . pt ambulated in room using FWW ~40 ft CGA and cues for safety. presents with unsteady gait. O2 sat: 93-96% with pt requested to go back to bed and sat on EOB. completed sit to supine min A and max cues. pt tends to twist. Bed mobility training conducted. pt completed log roll supine<> sit again CGA to min A and max cues. positioned pt in bed. call light and table placed within reach. patient scheduling manager stated that she spoke with spouse and will do caregiver training tomorrow. lining caser will call spouse to come in tomorrow at 9 am for caregiver training. Gait Assessment Gait Gait Assistance Required: Contact Guard Assist Distance (Feet) 50 Able to Maintain Weight Bearing Status Yes During Gait Assistive Devices Assistive Device Gait Belt,Front Wheeled Walker Orthotic/Prosthetic Devices or Brace: No Gait Deviations General Gait Pattern Decreased Stride Length, Decreased Feet Clearance Factors Limiting Gait Function Factors Limiting Gait Function Decreased Activity Tolerance, Decreased Strength,Difficulty Following Directions,Limited Range of Motion,Pain,Poor Balance,Poor Safety Awareness M5 PT-IP Objective Assessments Start: 04/12/24 07:44 Freq: NEEDED Status: Active Protocol: Document 04/12/24 09:25 MB (Rec: 04/12/24 10:27 MB [id number]) Orientation Orientation/Cognition Level of Alertness Alert Orientation Name,Age,Birthday,Month,Date, Year,Day of Week,Place, Situation Language Function Ability Hard of Hearing Safety Awareness Decreased Safety Awareness Memory Description No Deficits Noted Comments Pt is groggy this morning Gross Range of Motion Upper Extremity ROM Impairments Defer to OT Lower Extremity ROM Assessment Within Functional Limits Strength Lower Extremity Strength Ankle B DF and great toe extension 4 +/5 Comments Strength Comments Did not MMT B knees and hips today, functional with standing and stepping Coordination Assessment Gross Coordination Gross Coordination Impaired Sensation Assessment Comments Sensation Comments Pt does not follow commands today M6 PT-IP Treatment Start: 04/12/24 07:44 Freq: NEEDED Status: Active Protocol: Document 04/13/24 13:14 AB (Rec: 04/13/24 16:51 AB [id number]) Physical Therapy Treatment Education Education Provided Precautions,Weight Bearing Status,Safety M7 PT-IP Assessment and Plan Start: 04/12/24 07:44 Freq: NEEDED Status: Active Protocol: Document 04/13/24 13:14 AB (Rec: 04/13/24 16:51 AB [id number]) PT Summary Assessment and Plan Potential Rehabilitation Potential Fair Summary Impairments Pain,ROM,Strength,Balance, Coordination,Sensation,Tone, Cognition,Bed Mobility, Transfers,Gait,Activity Tolerance Progress Towards Goals Slow Progress due to Activity Tolerance,Slow Progress - Other Assessment Summary pt improving slowly with mobility but continues to require CGA to min A with bed mobility, CGA with transfers and ambulation using fWW and requires max cues with all tasks. pt with memory issues affecting carryover of techniques and safety and needed one step commands with all tasks. pt's O2 sat also decreases to 86% at RA with mobility needing supplemental O2 at 1/2L/min and O2 sat maintained: 94-96% with activity. caregiver training set up tomorrow at 9 am. will continue to assess progress. Goals Bed Mobility Goal Independent Transfer Goal Independent,Front Wheeled Walker Gait Goal Independent,Front Wheel Walker Gait Distance 100 Other Goals Pt will ascend and descend 2 platform steps with LRAD and no more than min A to allow safe home entrance. Days to Meet Goals 5 Frequency of Treatment Frequency Of Treatment Twice a Day Treatment Plan Physical Therapy Treatment Plan Bed Mobility Training,Transfer Training,Gait Training, Therapeutic Exercise,Balance Retraining,Post Op Education, Discharge Planning,Hot or Cold Pack,Neuromuscular Re-ed, Coordination Retraining,Manual Therapy Precautions Lumbar Precautions Log Roll,No Twisting,Limit Bending,Lifting Restriction of 10 lbs,Gait Belt above Incisional Area Recommendations To Nursing Amount of Assist Needed 1 Person Assist Discharge Recommendations PT Discharge Recommendations Home with 10/01 Assist Available,Home Health Transportation Needs at Discharge Private Vehicle
--- NOTE | 2024-04-13 15:05 | CM.DPC ---
DCP Continued: Reviewed EMR and team rounds for pt?s medical status. Per rounds, pt is still hypotensive and is now requiring O2. PT/OT still recommending home vs. SNF. DCP entered room and introduced self and role. Present in the room is pt's . DCP discussed the recommendation for SNF with patient and he is still adamantly declining a referral to be sent to any Rehab facility. Pt reports he has all appropriate DME and assistance at home with his . DCP discussed home health, pt also declines referral to home health agency. DCP encouraged pt to follow up with PCP if need for HH arises post-discharge. Pt requested that this SQUARE SHEAR OPERATOR relay to PT that she can be made available during PT treatment to learn how she can assist at home. Plan: Anticipating discharge home with spouse assistance when medically cleared. CM Team will continue to follow for coordination of discharge plans. ALPHONSE Grady
--- NOTE | 2024-04-13 15:47 | DIET.CONS2 ---
Dietary Inpatient Consultation Note Admission Date: 04/11/2024 10:39 RD screened d/t pt with hx of insulin-dependent diabetes on regular over carb consistent diet. EMR reviewed. A1c 7.3% on 07/21/22. Diet changed from general to carb consistent large (4 CHO) to provide therapeutic diet during admission. DFM reviewed. Upcoming meals pt has already ordered are all within 4 carb servings. F/u as needed. Diet: 04/13/24 Lunch Carbohydrate Consistent Diet Diet Modifications: Carbohydrate level: Large (4 CHO) Reflex DM orders: No Food Texture: Level 7 - Regular Liquid Consistency: Level 0 - Thin Nutrition Percent Meal Consumed 100% 04/13/24 08:45 Electronically Signed by: Raissa Conklin 04/13/24 15:47 Clinical Dietitian [address] [id number]
[2024-04-13 16:03] VITALS: BP 154/59; PULSE 66; RESP 16; TEMP 36.9; O2SAT 97
--- NOTE | 2024-04-13 16:36 | PC.NURSE ---
Patient refused to wear SCD.
--- NOTE | 2024-04-13 17:21 | PM.PNPO.1 ---
Subjective Subjective Date Patient Seen: 04/13/24 Time Patient Seen: 17:22 Interval history: Pain mild to moderate. No N/V. No fever or chills. Exam Vital Signs (past 8 hours): - 04/13/24 16:03 Temperature 98.5 F Pulse Rate 66 Respiratory Rate 16 Blood Pressure 154/59 H Pulse Oximetry 97 Fraction of Inspired Oxygen 28 SaO2/FiO2 Ratio 339 Oxygen Delivery Method Nasal Cannula Oxygen Flow Rate 2 Narrative Exam Narrative: 77 NAD. NV status intact bilat. LE. Const General: cooperative and comfortable Nutritional Appearance: average body habitus Orientation: alert Resp Effort & Inspection: normal respiratory effort and able to speak in complete sentences Objective Labs 04/12/24 05:17 PFSH Medical History Easy bruisability Melanoma Spinal stenosis of lumbar region Prostate cancer (~2019) GERD (gastroesophageal reflux disease) HLD (hyperlipidemia) HTN (hypertension) Sleep apnea Hearing loss Spondylolisthesis at L4-L5 level Facet arthropathy, lumbar Anxiety Surgical History History of back surgery (07/20/22) Hx of bilateral cataract extraction History of hand surgery History of intestinal surgery History of tonsillectomy History of appendectomy Social History household members: spouse Smoking Status: Former smoker alcohol intake: current Assessment & Plan Post-op Postoperative Procedures: Procedures Operation Date: 04/11/24 12:15 Actual Procedure Side Surgeon p L3-4 TLIF, Extension to L4-S1 instrumentation Adam Cisneros MD Postoperative day: 2 Postoperative status: doing well Postoperative plan: routine post-op care Postoperative plan narrative: Limited mobility and limited help at home. Likely discharge home 04/14/24 Quality VTE Deep Vein Thrombosis/Pulmonary Embolism Present on Admission: No
[2024-04-13 20:24] VITALS: BP 156/54; PULSE 83; RESP 16; TEMP 38.1; O2SAT 94
[2024-04-13] MEDS: SENNOSIDES 8.6 MG TABLET 17.2 MG PO (20:28)
[2024-04-13] MEDS: ALPRAZolam 0.25 MG TABLET 1 MG PO (20:28)
[2024-04-13 20:29] VITALS: BP 156/54; PULSE 76
[2024-04-13] MEDS: ATORVASTATIN 20 MG TABLET 40 MG PO (20:29)
[2024-04-14 00:16] VITALS: BP 137/59; PULSE 75; RESP 16; TEMP 36.9; O2SAT 95
[2024-04-14 01:22] VITALS: O2SAT 92
[2024-04-14] MEDS: ACETAMINOPHEN 325 MG TABLET 650 MG PO ×2 (07:56→13:39)
[2024-04-14] MEDS: MAGNESIUM HYDROXIDE 30 ML UDC PO (07:56)
[2024-04-14] MEDS: INSULIN LISPRO 100 UNIT/ML 3ML VIAL SUBCUT ×2 (07:57→12:22)
[2024-04-14] MEDS: PANTOPRAZOLE DR 20 MG TABLET PO (08:29)
[2024-04-14] MEDS: polyethylene glycoL 3350 17 GM POWD.PACK PO (08:29)
[2024-04-14] MEDS: atenoloL 50 MG TABLET 100 MG PO (08:29)
[2024-04-14] MEDS: CHLORTHALIDONE 25 MG TABLET PO (08:29)
[2024-04-14 08:31] VITALS: BP 153/53; PULSE 71
[2024-04-14] MEDS: TAMSULOSIN 0.4 MG CAPSULE PO (08:31)
[2024-04-14] MEDS: lisinopriL 20 MG TABLET PO (08:31)
[2024-04-14] MEDS: DOCUSATE 100 MG CAPSULE PO ×2 (08:31)
[2024-04-14] MEDS: MULTIVITAMIN 1 TABLET 1 TAB PO (08:31)
[2024-04-14] MEDS: AMLODIPINE 5 MG TABLET PO (08:31)
[2024-04-14] MEDS: INSULIN GLARGINE 100 UNIT/ML 3ML PEN SUBCUT (08:32)
[2024-04-14 08:54] VITALS: BP 172/69; PULSE 71; RESP 17; TEMP 37.1; O2SAT 94
--- NOTE | 2024-04-14 09:00 | PT.IPTN ---
Current Diagnoses Spinal stenosis, lumbar region with neurogenic claudication (04/11/24) Arthrodesis status (04/11/24) Surgery Performed Operation Date: 04/11/24 12:15 Actual Procedures p L3-4 TLIF, Extension to L4-S1 instrumentation - Adam Cisneros MD Physical Therapy Treatment Note M2 PT-IP Current Condition Start: 04/12/24 07:44 Freq: NEEDED Status: Active Protocol: Document 04/12/24 09:25 MB (Rec: 04/12/24 10:27 MB [id number]) Physical Therapy Current Condition Current Condition Evaluation Date 04/12/24 Treatment Diagnosis L3-4 fusion, expansion L4-S1 instrumentation M3 PT-IP Subjective Start: 04/12/24 07:44 Freq: NEEDED Status: Active Protocol: Document 04/14/24 09:00 AB (Rec: 04/14/24 12:50 AB [id number]) Subjective Physical Therapy Visit Type Type Treatment Note Visit Start Time 09:00 Visit Stop Time 09:35 Number of ENGINE EMISSION TECHNICIAN Visits 35 Therapy Pain Assessment Pain When Pain Assessed At Rest Pain Present Pain Present Pain Reported Location low back Intensity 2 Scale Used Numeric (0 - 10) Pain Management Techniques Distraction,Modification of Treatment,Re-positioning, Timing of Activity with Medications M4 PT-IP Mobility and Gait Start: 04/12/24 07:44 Freq: NEEDED Status: Active Protocol: Document 04/14/24 09:00 AB (Rec: 04/14/24 12:50 AB [id number]) PT-Bed Mobility Assessment Rolling Type of Rolling Log Rolling Level of Assist Standby Assistance Supine to Sit Supine to Sit Standby Assistance Sit to Supine Sit to Supine Standby Assistance PT-Transfer Assessment Sit to and From Stand Sit to and from Stand Standby Assistance,Contact Guard Assistance,1 Person Assistance,Use of Upper Extremities Equipment Transfer Assistive Device Gait Belt,Front Wheeled Walker Orthotic/Prosthetic Devices or Brace: No Transfers Transfer Destination Chair Transfer Technique ambulated Transfer Ability Level of Assist Standby Assistance,Contact Guard Assistance,1 Person Assistance,Use of Upper Extremities Comments Mobility Comments pt sitting on the chair and agreeable to do PT. spouse in room. O2 sat with .5L/min: 90 -91%. informed nurse and if pt can go to 1L/min O2 for mobility and agreed. O2 sat with 1L/min O2: 94-96% and maintained during mobility. caregiver training conducted. educated pt and spouse regarding pt's back precautions and log roll bed mobility. educated spouse on use of safety belt and how to assist pt. spouse was able to put safety belt on pt and assisted pt with sit to stand. pt ambulated in room ~ 30 ft using FWW SBA to CGA with spouse assisting. pt sat on EOB. completed log roll sit<> supine SBA but with max cues for techniques. informed spouse on how to cue pt. pt pt completed log roll bed mobility again with spouse cueing. pt completed sit to stand from EOB SBA to CGA and ambulated towards platform step using FWW with spouse assisting SBA to CGA. pt completed up/down step using FWW CGA with spouse assisting but with cues provided by PT for techniques. pt repeated again and spouse able to assist and cue pt. pt ambulated back to the room using FWW and sat on chair. positioned pt on the chair. call light and table placed within reach. Gait Assessment Gait Gait Assistance Required: Standby Assistance,Contact Guard Assist Distance (Feet) 30 Able to Maintain Weight Bearing Status Yes During Gait Assistive Devices Assistive Device Gait Belt,Front Wheeled Walker Orthotic/Prosthetic Devices or Brace: No Gait Deviations General Gait Pattern Decreased Stride Length,Step- to Gait Factors Limiting Gait Function Factors Limiting Gait Function Decreased Activity Tolerance, Decreased Strength,Difficulty Following Directions,Limited Range of Motion,Pain,Poor Balance,Poor Safety Awareness Stair Climbing Assessment Evaluation Level of Assist On Stairs Contact Guard Assistance,1 Person Assistance Devices Stair Climbing Assistive Devices Front Wheel Walker Technique/Endurance Stair Climbing Technique Step to Step Number of Steps Climbed 1 Stair Climbing Set # Repetitions (reps) 2 M5 PT-IP Objective Assessments Start: 04/12/24 07:44 Freq: NEEDED Status: Active Protocol: Document 04/12/24 09:25 MB (Rec: 04/12/24 10:27 MB [id number]) Orientation Orientation/Cognition Level of Alertness Alert Orientation Name,Age,Birthday,Month,Date, Year,Day of Week,Place, Situation Language Function Ability Hard of Hearing Safety Awareness Decreased Safety Awareness Memory Description No Deficits Noted Comments Pt is groggy this morning Gross Range of Motion Upper Extremity ROM Impairments Defer to OT Lower Extremity ROM Assessment Within Functional Limits Strength Lower Extremity Strength Ankle B DF and great toe extension 4 +/5 Comments Strength Comments Did not MMT B knees and hips today, functional with standing and stepping Coordination Assessment Gross Coordination Gross Coordination Impaired Sensation Assessment Comments Sensation Comments Pt does not follow commands today M6 PT-IP Treatment Start: 04/12/24 07:44 Freq: NEEDED Status: Active Protocol: Document 04/14/24 09:00 AB (Rec: 04/14/24 12:50 AB [id number]) Physical Therapy Treatment Education Education Provided Precautions,Safety M7 PT-IP Assessment and Plan Start: 04/12/24 07:44 Freq: NEEDED Status: Active Protocol: Document 04/14/24 09:00 AB (Rec: 04/14/24 12:50 AB [id number]) PT Summary Assessment and Plan Potential Rehabilitation Potential Good Summary Impairments Pain,ROM,Strength,Balance, Coordination,Sensation,Tone, Cognition,Bed Mobility, Transfers,Gait,Activity Tolerance Progress Towards Goals Slow Progress due to Medical Issues,Slow Progress due to Activity Tolerance Assessment Summary pt requiring SBA to CGA with mobility using FWW. caregiver training conducted and spouse was able to assist pt safely. pt may go home when medically stable. Goals Bed Mobility Goal Independent Transfer Goal Independent,Front Wheeled Walker Gait Goal Independent,Front Wheel Walker Gait Distance 100 Other Goals Pt will ascend and descend 2 platform steps with LRAD and no more than min A to allow safe home entrance. Days to Meet Goals 5 Frequency of Treatment Frequency Of Treatment Once a Day Treatment Plan Physical Therapy Treatment Plan Bed Mobility Training,Transfer Training,Gait Training, Therapeutic Exercise,Balance Retraining,Post Op Education, Discharge Planning,Hot or Cold Pack,Neuromuscular Re-ed, Coordination Retraining,Manual Therapy Precautions Lumbar Precautions Log Roll,No Twisting,Limit Bending,Lifting Restriction of 10 lbs,Gait Belt above Incisional Area Recommendations To Nursing Amount of Assist Needed 1 Person Assist Discharge Recommendations PT Discharge Recommendations Home with 10/01 Assist Available,Home Health Transportation Needs at Discharge Private Vehicle
--- NOTE | 2024-04-14 09:22 | DI.RAD.S_ITS ---
PROCEDURE: XR CHEST 1V INDICATIONS: Short of breath, low O2 sat. Consider pneumonia. TECHNIQUE: One view of the chest was acquired. COMPARISON: None. FINDINGS: Surgical changes and devices: None. Lungs and pleura: There is blunting of the left costophrenic angle. Mild interstitial prominence can be seen. Mediastinum: Mediastinal contours appear normal. Heart size is mildly enlarged. Atherosclerotic calcification of the aortic arch is noted. Bones and chest wall: No suspicious bony lesions. Age-appropriate bony degenerative changes are seen. Overlying soft tissues appear unremarkable. IMPRESSION: Cardiomegaly with interstitial prominence and a small left-sided pleural effusion. CHF is suspected. Dictated by: Koffi Romero M.D. on 04/14/2024 at 10:15 Approved by: Koffi Romero M.D. on 04/14/2024 at 10:16
--- NOTE | 2024-04-14 09:31 | PM.DS.1 ---
History of Present Illness History of Present Illness Date Patient Seen: 04/14/24 Time Patient Seen: 09:00 Chief complaint: TLIF Narrative: Patient has been having chronic back pain and worsening lumbar radiculopathy. Patient had history of L4-S1 fusion and has been doing well until recently. Patient's new MRI shows significant L3-4 degenerative disc disease spondylosis with foraminal stenosis and spondylolisthesis correlating with patient's symptoms. Patient failed multiple conservative management with worsening pain weakness and numbness in his lower extremity. Patient has been having difficulty performing activity of daily living. After discussing risks benefits of treatment options, patient elected proceed with surgery. Discharge Providers Provider Date of admission: 04/11/24 10:39 Discharge Date: 04/14/24 Primary care physician: Agapito Murguia MD Consults: 04/11/24 15:55 Consult to Occupational Therapy Evaluate & Treat Comment: Physician Instructions: Evaluate and treat Consult to Physical Therapy Evaluate & Treat Comment: Physician Instructions: Evaluate and Treat Discharge provider: Freddie Chang PA-C Summary Hospital Course Discharge Diagnosis: 1. L3-4 spondylolisthesis 2. L3-4 foraminal stenosis Hospital Course: Procedure & Clinicians Procedure: 1. L3-4 Postero-lateral and posterior interbody fusion 2. L3-4 interbody cage placement. 3. L3-4 decompressive laminectomy with bilateral facetecomies 4. L3-4 Posterior non-segmental instrumentation 5. [place] of bone marrow from iliac crest 6. Utilization of microsurgical technique and operating microscope Same procedure as scheduled: Yes Surgeon: Adam Cisneros Teletypesetter Operator: Sharron Hobson Yes if Unassisted: No Anesthesia Type: General Operative Notes Closure Type: primary Specimen(s): none sent Prosthetic devices, grafts, tissues, transplants, or devices: Globus CREO MIS screws, Rise cage Applied: catheter Estimated Blood Loss (mL): 100 Blood products transfused: none Status at Discharge Cognitive/behavioral status at discharge: oriented Functional status at discharge: uses cane/walker Overall status at discharge: patient is progressing back to baseline Time Spent with Patient Time spent: Less than 30 minutes Exam Vital Signs (past 8 hours): - 04/14/24 07:50 04/14/24 08:31 04/14/24 08:54 Temperature 98.7 F Pulse Rate 71 71 Respiratory Rate 17 Blood Pressure 153/53 H 172/69 H Pulse Oximetry 94 Oxygen Delivery Method Room Air Oxygen Flow Rate 1.5 Fraction of Inspired Oxygen 24 SaO2/FiO2 Ratio 383 Oxygen Delivery Method Room Air Oxygen Flow Rate 1.5 Narrative Exam Narrative: Patient found sitting comfortably in a chair with his at bedside. Denies any new numbness or tingling in his lower extremities. Pain is localized at the incision site. Pain has been controlled with oral medications. Been able to ambulate with walker with physical therapy. Does note some shortness of breath when working with therapy. History of smoking for 20 years but discontinued in 1979. Says he has pre-existing shortness of breath with activity prior to surgery. Patient is ready to be discharged home. 5/5 strength in hip flexors, quadriceps, hamstrings, DF, PF, EHL bilaterally. Sensation to light touch intact throughout BLE. Calves soft, compressible, nontender. ?Dressing placed intraoperatively blood seeping through the pads. Dressing intact. Resp Effort & Inspection: normal respiratory effort and able to speak in complete sentences Auscultation: clear to auscultation bilaterally Objective Labs 04/12/24 05:17 [facility] Medical History Easy bruisability Melanoma Spinal stenosis of lumbar region Prostate cancer (~2019) GERD (gastroesophageal reflux disease) HLD (hyperlipidemia) HTN (hypertension) Sleep apnea Hearing loss Spondylolisthesis at L4-L5 level Facet arthropathy, lumbar Anxiety Surgical History History of back surgery (07/20/22) Hx of bilateral cataract extraction History of hand surgery History of intestinal surgery History of tonsillectomy History of appendectomy Social History household members: spouse Smoking Status: Former smoker alcohol intake: current Discharge Assessment & Plan Assessment and Plan Assessment: Status post TLIF Plan of Treatment: CXR ordered today due to reportred O2 stat in the 80 at rest and SoB with activity. According to the . the SoB with activity was present before surgery. Radiologist reading of CXR: Cardiomegaly?with?interstitial?prominence?and?a?small?left-sided?pleural?effusion.??CHF?is?suspected. Dictated?by:?Koffi?Rachel?Heather,?M.D Pleural effusion could be secondary to CHF or pneumonia. Plan to discharge home with O2 evauation. Recommend patient follow up with PCP for evaulation of cardiomegaly. Z-Cedrick prescribed to address possible pneumonia. Follow up with PCP. Home O2 upon recommendation of RT. Follow up with PCP. Patient will continue with baseline pain control with oxycodone/acetaminophen. He is prescribed 5 mg of oxycodone take every 6 hours as needed for breakthrough pain has not controlled with his oxycodone/acetaminophen regimen prescribed by pain management. Limitations of no bending at the waist twisting or lifting more than 10 lb. Keep dressing clean and dry. Follow up with clinic for wound check in 2 weeks. Discharge Plan Discharge Plan Patient Disposition: Home Provider Discharge Comment: Pending clear CXR Discharge orders & Medications Prescriptions: New oxycodone 5 mg Tablet 5 mg PO Q6HR Qty: 30 0RF Continued multivitamin Tablet 1 tab PO DAILY aspirin 81 mg Tablet,Delayed Release (Dr/Ec) 81 mg PO DAILY acetaminophen 500 mg capsule 500 mg PO Q6HR MDD Max 3000 mg per day PRN (Reason: Pain, Mild (1-3)) Qty: 90 0RF docusate sodium 100 mg Capsule 100 mg PO BID PRN (Reason: constipation) Qty: 20 0RF chlorthalidone 25 mg Tablet 25 mg PO DAILY oxycodone-acetaminophen 5-325 mg tablet 1 tab PO TID lisinopril 40 mg tablet 20 mg PO BID omeprazole 20 mg capsule,delayed release(DR/EC) 20 mg PO BID alprazolam 1 mg tablet 1 mg PO BEDTIME Lantus Solostar U-100 Insulin 100 unit/mL (3 mL) insulin pen 100 unit SUBCUT QAM Patient Comments: CBG prior to dose 137 atorvastatin 40 mg tablet 40 mg PO BEDTIME atenolol 50 mg tablet 100 mg PO DAILY amlodipine 5 mg tablet 5 mg PO BID insulin lispro [Humalog KwikPen Insulin] 100 unit/mL insulin pen 10 unit SUBCUT TID Patient Comments: TID for blood sugar >100. tamsulosin [Flomax] 0.4 mg capsule 0.4 mg PO BID Follow up/Referrals: Agapito Murguia MD [Primary Care Provider] - Adam Cisneros MD [Physician] - 2 Weeks Diet/Activity/Treatments Diet: Diet as Tolerated Activity: No deep bending or twisting at the waist. No lifting more than 10 pounds. Skin/Wound/Dressing Care Report to your healthcare provider any signs of infection, such as:: chills, fever, night sweats, unusual drainage and unusual redness Dressing: May shower. Keep dressing as dry as possible. If dressing becomes wet or dirty, remove and replace with clean, dry gauze. No bathing or otherwise soaking incisions. Do not put any creams, lotions, or ointments on incisions. Visit Report/Discharge Packet Instructions: DI for Prescription Opioid Use, DI for Transforaminal Lumbar Interbody Fusion, DI for Heart Failure Stand Alone Forms: Patient Portal/API, Stroke Signs & Symptoms, Surgery Discharge Discharge Data Primary Care Provider: Agapito Murguia VTE Deep Vein Thrombosis/Pulmonary Embolism Present on Admission: No
--- NOTE | 2024-04-14 14:24 | CM.DPC ---
DCP Discharge Home Per Ortho PA, pt medically stable to d/c home today after further PT and no identified barriers to discharge. Per PT, completed CG training with spouse bedside today and recommending safe d/c home with spouse assist and HH. SW confirmed with pt and spouse that they decline HH and preference is home today and RN provided discharge instructions and taken down to POV. SIM Lucero
== END 2024-04-14 13:56 | disposition home or self-care (01) | DRG 402 ==
PROVIDERS: Admitting Provider Orthopaedic Surgery Orthopaedic Surgery of the Spine; Family Provider Family Medicine; PCP Internal Medicine; Referring Provider Internal Medicine; Visit Provider Orthopaedic Surgery Orthopaedic Surgery of the Spine
PROC: 0SG00AJ Fusion of Lumbar Vertebral Joint with Interbody Fusion Device, Posterior Approach, Anterior Column, Open Approach (ICD-10-PCS; principal; 2024-04-11 12:15)
DX: M43.16 Spondylolisthesis, lumbar region (principal); J18.9 Pneumonia, unspecified organism; M48.062 Spinal stenosis, lumbar region with neurogenic claudication; M47.26 Other spondylosis with radiculopathy, lumbar region; M46.96 Unspecified inflammatory spondylopathy, lumbar region; M51.369 Other intervertebral disc degeneration, lumbar region without mention of lumbar back pain or lower extremity pain; I50.9 Heart failure, unspecified; I11.0 Hypertensive heart disease with heart failure; E78.5 Hyperlipidemia, unspecified; K21.9 Gastro-esophageal reflux disease without esophagitis; E11.9 Type 2 diabetes mellitus without complications; F41.9 Anxiety disorder, unspecified; Z98.1 Arthrodesis status; Z87.891 Personal history of nicotine dependence; Z79.4 Long term (current) use of insulin
CPT/HCPCS: 36415; 71045; 72100; 76000; 82962; 85014; 85018; 94762; 97116; 97161; 97165; 97530; 97535; C9290; J0171; J0690; J1171; J2405; J2704; J3010; J3410

== ENCOUNTER → 2024-12-26 14:13 | Outpatient (CLI) | payer OTHER, SELFPAY ==
[2024-04-11 16:00] VITALS: BMI 33.3
--- NOTE | 2024-12-26 14:15 | DI.NM.S_ITS ---
PROCEDURE: NM BLANCA PERF SPECT R&S PHARM Rest and pharmacological stress myocardial perfusion SPECT with gated imaging and ejection fraction RADIOPHARMACEUTICAL: 25.6 mCi Tc-99m tetrafosmin IV at rest and 25.9 mCi Tc-99m tetrafosmin IV at peak effect of pharmacological stress. [id number] was performed. INDICATIONS: I44.7 TECHNIQUE: Radiopharmaceutical was injected at peak stress test, and also at rest. SPECT images were obtained. SPECT myocardial perfusion images were displayed in short axis, horizontal long axis, and vertical long axis views. Gated images were reviewed using [employer] software. COMPARISON: None. CARDIAC STRESS: A pharmacologic stress test was performed under the supervision of an attending staff, using an infusion of lexiscan 0.4mg IV X1. Hemodynamic data: There is normal blood pressure and heart rate response to pharmacologic stress. Symptoms: The patient denied anginal chest pain. Aminophylline: none EKG: Sinus rhythm with LBBB at rest. ECG non-diagnostic due to baseline LBBB; rare PACs present. FINDINGS: Raw data: There is good myocardial uptake of radiotracer. No significant motion artifacts. Left ventricle function: Gated images demonstrate normal left ventricular wall thickening. No segmental wall motion abnormalities. No transient ischemic dilation; TID is 1.24 (normal less than 1.3). Left ventricle resting end diastolic volume is 152 mL. Left ventricle stress ejection fraction is 71%; normal range is above 45%. Myocardial perfusion: There is a mild to moderately intense predominantly fixed inferior and apical defect that persists with prone imaging, suggesting prior non- transmural infarction and mild [place]-infarct ischemia. IMPRESSION: Abnormal pharm nuclear stress test consistent with prior infarction and mild ischemia. 1) There is a mild to moderately intense predominantly fixed inferior and apical defect that persists with prone imaging, suggesting prior non-transmural infarction and mild [place]-infarct ischemia. 2) Enlarged left ventricle (LVEDV 152cc at rest) with normal wall motion and normal systolic function (EF post stress 71%). 3) ECG non-diagnostic due to baseline LBBB. 4) No angina during the study. 5) No prior nuclear stress test available for comparison. Dictated by: Prashanth Almazan MD on 01/04/2025 at 16:36 Approved by: Prashanth Almazan MD on 01/04/2025 at 16:41
== END ==
LOC: NUCM 14:14
PROVIDERS: Family Provider Family Medicine; PCP Internal Medicine; Referring Provider Internal Medicine; Visit Provider Internal Medicine
DX: I44.7 Left bundle-branch block, unspecified (principal); R06.09 Other forms of dyspnea; R94.39 Abnormal result of other cardiovascular function study
CPT/HCPCS: 78452; 93017; A9502; J2785